=== PATIENT | male | born 1990 | race Caucasian/White ===

== ENCOUNTER 2021-08-22 22:57 | Emergency (ER) | payer MEDICAID, SELFPAY ==
[2021-08-22 23:03] VITALS: RESP 14; TEMP 36.8; BMI 24.2
--- NOTE | 2021-08-22 23:03 | XRR_ITS ---
PROCEDURE INFORMATION: Exam: XR Chest Exam date and time: 08/22/2021 11:18 PM Age: 31 years old Clinical indication: Angina; Additional info: Chest pain TECHNIQUE: Imaging protocol: Radiologic exam of the chest. Views: 1 view. COMPARISON: No relevant prior studies available. FINDINGS: Lungs: Unremarkable. No consolidation. Pleural spaces: Unremarkable. No pleural effusion. No pneumothorax. Heart/Mediastinum: Unremarkable. No cardiomegaly. Bones/joints: Unremarkable. XR/XR chest 1V portable [id number] IMPRESSION: No acute findings.
--- NOTE | 2021-08-22 23:04 | ECG_ITS ---
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 Measurements Intervals [place] Rate: 71 P: 65 [place]: 167 QRS: 75 QRSD: 93 T: 51 QT: 367 QTc: 401 Interpretive Statements SINUS RHYTHM No previous ECG available for comparison Electronically Signed On 08-23-2021 18:22:44 CDT by Rod Schumacher M.D. [id number]
--- NOTE | 2021-08-22 23:05 | ED_ITS ---
HPI - Chest Pain General: Chief Complaint: Chest Pain Stated Complaint: CP Time Seen by Provider: 08/22/21 23:03 History of Present Illness: 31-year-old male patient comes in today with chest discomfort followed by a large bowel movement and passing of gas. Patient reports he has had about 4 episodes of this. Patient at this time is in [place] for [place] abuse. Patient does take routine medications at the facility. Patient had his appendix removed in March of this year and has had a hernia repair at the age of 4. Patient denies any other chronic medical pro blems besides his mental health issues. Patient denies any drug allergies. Symptoms have been going on for 1 to 2 hours. Associated symptoms: Reports nausea; Deny dyspnea or vomiting Review of Systems General: Reports: 10 or more systems reviewed and unremarkable except in HPI and below ENMT: Denies: throat pain Card: Reports: chest pain Resp: Denies: dyspnea GI: Reports: nausea and diarrhea; Denies: vomiting Physical Exam Const: COMMON NORMALS: alert HENMT: COMMON NORMALS: normocephalic HEAD & SCALP: normocephalic Neck/C-Spine: COMMON NORMALS: full ROM Resp: COMMON NORMALS: normal respiratory effort and clear to auscultation bilaterally AUSCULTATION: clear to auscultation bilaterally Cardio: COMMON NORMALS: regular rate RATE: regular rate GI: COMMON NORMALS: Soft to palpation AUSCULTATION: Yes Hyperactive bowel sounds present PALPATION: Yes Soft to palpation Extremity: COMMON NORMALS: normal to inspection Neuro: SENSORIUM/ORIENTATION: Yes alert Skin: COMMON NORMALS: no rashes or lesions noted GENERAL SKIN EXAM: no rashes or lesions noted Course Vital Signs: Vital signs: Vital Signs Temperature 98.3 F 08/22/21 23:03 Respiratory Rate 14 08/22/21 23:03 MDM - Chest Pain Medical Decision Making 31-year-old male patient comes in today with complaints of chest discomfort. Patient describes the chest discomfort as going across his chest and then s uddenly he felt the urge to defecate. Patient then will go to the bathroom and have a large bowel movement with lots of gas. Patient reports 4 episodes of this. On exam abdomen was soft with hyperactive bowel sounds. Skin was warm and dry. Vital signs were normal. Differential diagnosis includes but not limited to atypical chest pain, gastroenteritis, irritable bowel syndrome, cholecystitis. CBC and CMP were unremarkable. Patient had no further episodes while in the ER. Patient was given 1 dose of Bentyl 20 mg for preventative of his discomfort. Encourage light diet and follow-up with primary care return to ER for new concerns or worsening symptoms. Lab Data : 08/22/21 23:05 08/22/21 23:05 Laboratory Results WBC 7.5 10^3/uL (4.0-10.0) 08/22/21 23: RBC 3.82 10^6/uL (4.1-5.3) L 08/22/21 23:05 Hgb 12.2 g/dL (11.7-16.6) 08/22/21 23:05 Hct 37.3 % (42.0-52.0) L 08/22/21 23: MCV 97.6 fl (80-94) H 08/22/21 23:05 MCH 31.9 pg (28.0-34.0) 08/22/21 23: MCHC 32.7 g/dL (30.0-36.0) 08/22/21 23:05 RDW 12.5 % (12.1-15.1) 08/22/21 23:05 Plt Count 264 10^3/cmm (130-400) 08/22/21 23:05 MPV 10.3 fL (7.4-10.4) 08/22/21 23:05 Neut % (Auto) 62.1 % 08/22/21 23:05 Lymph % (Auto) 26.0 % 08/22/21 23:05 [place] % (Auto) 7.0 % 08/22/21 23:05 Eos % (Auto) 3.3 % 08/22/21 23:05 Baso % (Auto) 0.7 % 08/22/21 23:05 Neut # (Auto) 4.64 10^3/uL (1.8-7.7) 08/22/21 23:05 Lymph # (Auto) 1.9 10^3/uL (0.8-4.8) 08/22/21 23:05 [place] # (Auto) 0.5 10^3/uL (0.2-0.9) 08/22/21 23:05 Eos # (Auto) 0.3 10^3/uL (0.0-0.8) 08/22/21 23:05 Baso # (Auto) 0.1 10^3/uL (0.0-0.1) 08/22/21 23:05 Nucleated RBC % (auto) 0 % 08/22/21 23:05 Nucleated RBCs # 0.0 /100WBC 08/22/21 23:05 Sodium 140 mmol/L (136-145) 08/22/21 23:05 Potassium 3.9 mmol/L (3.5-5.1) 08/22/21 23:05 Chloride 103 mmol/L (98-107) 08/22/21 23:05 Carbon Dioxide 25 mmol/L (22-29) 08/22/21 23:05 Anion Gap 15.9 (5-19) 08/22/21 23:05 BUN 14 mg/dL (6-20) 08/22/21 23:05 Creatinine 0.7 mg/dL (0.7-1.2) 08/22/21 23:05 GFR Calculation 132.4 mL/min (90-130) H 08/22/21 23:05 Glucose 126 mg/dL (65-115) H 08/22/21 23:05 Calculated Osmolality 292 mOsm/kg (285-295) 08/22/21 23:05 Calcium 8.8 mg/dL (8.5-10.5) 08/22/21 23:05 Total Bilirubin 0.2 mg/dL (0.15-1.2) 08/22/21 23:05 AST 22 U/L (0-40) 08/22/21 23:05 ALT 34 U/L (0-41) 08/22/21 23:05 Alkaline Phosphatase 115 IU/L (40-130) 08/22/21 23:05 Creatine Kinase 99 U/L (39-308) 08/22/21 23:05 Troponin T Baseline 6 ng/L (0-15) 08/22/21 23:05 Total Protein 6.7 g/dL (6.6-8.7) 08/22/21 23:05 Albumin 4.3 g/dL (3.5-5.2) 08/22/21 23:05 Globulin 2.4 g/dL (1.3-4.6) 08/22/21 23:05 Lipase 39 U/L (13-60) 08/22/21 23:05 Urine Color Straw (Yellow) 08/22/21 23:05 Urine Appearance Clear (CLEAR) 08/22/21 23:05 Urine pH 7 (5-7) 08/22/21 23:05 Ur Specific [place] 1.005 (1.005-1.030) 08/22/21 23:05 Urine Protein Neg (Negative) 08/22/21 23:05 Urine Glucose (UA) Norm (Normal) 08/22/21 23:05 Urine Ketones Negative (Negative) 08/22/21 23:05 Urine Blood Neg (Negative) 08/22/21 23:05 Urine Nitrate Negative (Negative) 08/22/21 23:05 Urine Bilirubin Neg (Negative) 08/22/21 23:05 Urine Urobilinogen Norm mg/dL (Negative) 08/22/21 23:05 Ur Leukocyte Esterase Negative (Negative) 08/22/21 23:05 EKG Data EKG 1: EKG interpretation date: 08/22/21 EKG interpretation time: 23:27 Prior EKG tracings: not available for review Interpretation: EKG shows a sinus rhythm with a regular rate at [address] elevation or ectopy is noted. Discharge Plan Discharge Patient Disposition: Home Clinical Impression: Enteritis Condition: Stable Prescriptions: New dicyclomine 20 mg tablet 20 mg PO TID PRN (Reason: abdominal pain) Qty: 14 0RF Discharge Orders: Discharge ED (Routine); Ordered 08/23/21 Ordered By: David Brownlee Discharge Diet: Advance as tolerated Discharge Activity: Increase activity as tolerated Patient Instructions: Gastroenteritis (ED) Activity Restrictions/Additional Instructions: Drink lots of fluids. Eat a light diet for the next 24 to 48 hours. Avoiding foods that cause lots of gas, spicy foods, or strong acidic foods. Follow-up with primary care for further instructions. 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
[2021-08-22 23:32] LABS: Add Urine Microscopic? NO; Charge for UA Resulting for Rev
[2021-08-22 23:33] LABS: Basophils # 0.1 10^3/uL (0.0-0.1); Basophils % 0.7 %; Eosinophils # 0.3 10^3/uL (0.0-0.8); Eosinophils % 3.3 %; Hematocrit 37.3 % (42.0-52.0); Hemoglobin 12.2 g/dL (11.7-16.6); Lymphocytes # 1.9 10^3/uL (0.8-4.8); Mean Corpuscular HGB Conc 32.7 g/dL (30.0-36.0); Mean Corpuscular Hemoglobin 31.9 pg (28.0-34.0); Mean Corpuscular Volume 97.6 fl (80-94); Mean Platelet Volume 10.3 fL (7.4-10.4); Monocytes # 0.5 10^3/uL (0.2-0.9); Neutrophils # 4.64 10^3/uL (1.8-7.7); Neutrophils % 62.1 %; Nucleated Red Blood Cells % 0 %; Platelet Count 264 10^3/cmm (130-400); Red Blood Count 3.82 10^6/uL (4.1-5.3); Red Cell Distribution Width 12.5 % (12.1-15.1); White Blood Count 7.5 10^3/uL (4.0-10.0)
[2021-08-22 23:36] LABS: Bilirubin Urine Neg (Negative); Blood Urine Neg (Negative); Glucose Urine UA Norm (Normal); Ketones Urine Negative (Negative); Leukocyte Esterase Urine Negative (Negative); Nitrate Urine Negative (Negative); Protein Urine Neg (Negative); Specific Gravity, Urine 1.005 (1.005-1.030); Urine Appearance Clear (CLEAR); Urine Color Straw (Yellow); Urobilinogen Urine Norm (Negative); pH Urine 7 (5-7)
[2021-08-22 23:54] LABS: Alanine Aminotransferase 34 U/L (0-41); Albumin Level 4.3 g/dL (3.5-5.2); Alkaline Phosphatase 115 IU/L (40-130); Anion Gap 15.9 (5-19); Aspartate Amino Transferase 22 U/L (0-40); Blood Urea Nitrogen 14 mg/dL (6-20); Calcium 8.8 mg/dL (8.5-10.5); Carbon Dioxide 25 mmol/L (22-29); Chloride 103 mmol/L (98-107); Creatine Phosphokinase 99 U/L (39-308); Globulin 2.4 g/dL (1.3-4.6); Glomerular Filtration Rate 132.4 mL/min (90-130); Glucose 126 mg/dL (65-115); Lipase 39 U/L (13-60); Osmolality Calculated 292 mOsm/kg (285-295); Potassium 3.9 mmol/L (3.5-5.1); Sodium 140 mmol/L (136-145); Total Bilirubin 0.2 mg/dL (0.15-1.2); Total Protein 6.7 g/dL (6.6-8.7)
[2021-08-22 23:55] LABS: Troponin(5th) Baseline 6 ng/L (0-15)
[2021-08-22] MEDS: sodium chloride 0.9% 1,000 ML 999 ML IV (23:56)
[2021-08-22] MEDS: dicyclomine 20 mg Tablet PO (23:56)
[2021-08-23 00:17] VITALS: BP 124/70; PULSE 75; RESP 14; TEMP 36.8; O2SAT 98
== END 2021-08-23 00:20 | disposition home or self-care (01) ==
PROVIDERS: Emergency Provider Nurse Practitioner Family
DX: K52.9 Noninfective gastroenteritis and colitis, unspecified (principal)
CPT/HCPCS: 71045; 80053; 81003; 82550; 83690; 84484; 85025; 93005; 99285; J7030

== ENCOUNTER 2021-09-08 14:17 | Emergency (ER) | payer MEDICAID, SELFPAY ==
--- NOTE | 2021-09-08 14:24 | XR_ITS ---
WS: [id number] Exam: XR chest 1V portable [id number] Date/Time of Exam: 09/08/2021 2:24 PM Reason For Exam: dyspnea/cough Comparison 08/22/2021. Findings: The lungs are clear and fully expanded. Costophrenic angles are sharp. No infiltrates. Bronchovascula r relief appears normal. Cardiac silhouette is unremarkable. Bony elements are intact. XR/XR chest 1V portable [id number] IMPRESSION: Unremarkable chest radiograph.
[2021-09-08 14:46] VITALS: BP 107/61; PULSE 91; RESP 17; O2SAT 93
--- NOTE | 2021-09-08 14:48 | ECG_ITS ---
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 Measurements Intervals [place] Rate: 83 P: 59 WI: 149 QRS: 66 QRSD: 98 T: 42 QT: 356 QTc: 420 Interpretive Statements SINUS RHYTHM Compared to ECG 08/22/2021 23:20:25 No significant changes Electronically Signed On 09-08-2021 16:30:51 CDT by Francesco Christopher M.D. [id number]
[2021-09-08 14:51] LABS: Basophils % 0.5 %; Eosinophils # 0.2 10^3/uL (0.0-0.8); Eosinophils % 2.6 %; Hematocrit 38.6 % (42.0-52.0); Hemoglobin 13.5 g/dL (11.7-16.6); Lymphocytes # 1.7 10^3/uL (0.8-4.8); Lymphocytes % 28.3 %; Mean Corpuscular Hemoglobin 32.4 pg (28.0-34.0); Mean Corpuscular Volume 92.6 fl (80-94); Monocytes # 0.4 10^3/uL (0.2-0.9); Neutrophils # 3.74 10^3/uL (1.8-7.7); Neutrophils % 60.9 %; Nucleated Red Blood Cells % 0 %; Platelet Count 280 10^3/cmm (130-400); Red Blood Count 4.17 10^6/uL (4.1-5.3); Red Cell Distribution Width 12.5 % (12.1-15.1); White Blood Count 6.1 10^3/uL (4.0-10.0)
[2021-09-08 15:19] LABS: Alanine Aminotransferase 34 U/L (0-41); Albumin Level 4.4 g/dL (3.5-5.2); Alkaline Phosphatase 106 IU/L (40-130); Anion Gap 14.1 (5-19); Aspartate Amino Transferase 23 U/L (0-40); Blood Urea Nitrogen 10 mg/dL (6-20); Calcium 8.9 mg/dL (8.5-10.5); Carbon Dioxide 27 mmol/L (22-29); Chloride 105 mmol/L (98-107); Globulin 2.5 g/dL (1.3-4.6); Glomerular Filtration Rate 99.1 mL/min (90-130); Glucose 85 mg/dL (65-115); Osmolality Calculated 292 mOsm/kg (285-295); Potassium 4.1 mmol/L (3.5-5.1); Sodium 142 mmol/L (136-145); Total Bilirubin 0.2 mg/dL (0.15-1.2); Total Protein 6.9 g/dL (6.6-8.7)
[2021-09-08 15:54] VITALS: BP 110/62; PULSE 88; RESP 16; O2SAT 97
[2021-09-08 16:17] LABS: Add Urine Microscopic? NO; Charge for UA Resulting for Rev
--- NOTE | 2021-09-08 16:19 | W.ED.CHESTPA ---
HPI - Chest Pain General: Chief Complaint: Chest Pain Stated Complaint: CHEST PAIN, SIDE PAIN Time Seen by Provider: 09/08/21 14:19 Source: patient Mode of arrival: ambulatory Limitations: no limitations History of Present Illness: 31-year-old female presents to the emergency room describes left flank epigastric pain that started after he was eating. He has not had any shortness of breath is any dysuria urgency or frequency no nausea vomiting or diarrhea he states he has had problems before when he eats particular types of meat that seems to exacerbate the symptoms this episode is just more intense than it has been previously MD complaint: chest pain Pertinent past history: coronary artery disease Onset (ago): minute(s) Timing of current episode: episodic Prior episodes: Yes Onset: after eating Pain location: epigastric Pain radiation: none Severity: mild Quality: aching Relieving factors: nothing Associated symptoms: Reports abdominal pain; Deny diaphoresis, dyspnea, fever(s), leg edema, nausea, palpitations, sense of impending doom, syncope or vomiting Treatment prior to arrival: none Review of Systems Const: Denies: fever(s), chills, fatigue, malaise or diaphoresis ENMT: Denies: throat pain, ear or mastoid pain, nasal discharge or nasal congestion Card: Reports: chest pain; Denies: palpitations or syncope Resp: Denies: dyspnea, productive cough or non-productive cough GI: Reports: abdominal pain; Denies: nausea or vomiting : Denies: flank pain, difficulty urinating, dysuria, urinary frequency or urinary urgency Skin/Breast: Denies: rash or pruritus REPLACED BY [facility] ED PFSH: Medical History (Updated 09/14/21 @ 07:59 by Stanford Edwards DO) Asthma Social History (Updated 09/14/21 @ 07:59 by Stanford Edwards DO) Smoking and tobacco status: current every day smoker Alcohol intake: never Physical Exam Const: COMMON NORMALS: no acute distress GENERAL APPEARANCE: cooperative and comfortable ORIENTATION/CONSCIOUSNESS: Yes awake, Yes oriented to person, Yes oriented to place and Yes oriented to time HENMT: COMMON NORMALS: normocephalic, atraumatic, hearing grossly normal bilaterally, external ears normal, EAC's normal, TM's normal bilaterally, Normal nasal mucous membranes and turbinates present, moist oral mucous membranes and oropharynx normal HEAD & SCALP: normocephalic and atraumatic NOSE: Normal nasal mucous membranes and turbinates present EXTERNAL EAR: Yes external ears normal EXTERNAL AUDITORY CANAL: EAC's normal TYMPANIC MEMBRANE: TM's normal bilaterally Eye: COMMON NORMALS: Equal, round and reactive pupils present, EOMs intact bilaterally, conjunctivae normal and no scleral icterus CONJUNCTIVA: Yes conjunctivae normal PUPIL: Yes Equal, round and reactive pupils present Neck/C-Spine: COMMON NORMALS: full ROM, no lymphadenopathy, supple and no JVD Lymph: LYMPHATIC: no lymphadenopathy noted and no lymphedema noted Resp: COMMON NORMALS: normal respiratory effort, No retractions, No use of accessory muscles and clear to auscultation bilaterally AUSCULTATION: clear to auscultation bilaterally Cardio: COMMON NORMALS: no JVD, regular rate, regular rhythm and No murmurs present (Cardio) RATE: regular rate RHYTHM: regular rhythm GI: COMMON NORMALS: Soft to palpation and No hepatosplenomegaly present AUSCULTATION: Yes normoactive bowel sounds PALPATION: Yes Soft to palpation, No Tenderness to palpation present (GI), No Guarding due to palpation present (GI) and Yes No hepatosplenomegaly present Extremity: COMMON NORMALS: normal to inspection, capillary refill normal, no clubbing, cyanosis or edema, no calf tenderness and no pedal edema Neuro: SENSORIUM/ORIENTATION: Yes oriented to person, Yes oriented to place and Yes oriented to time Skin: COMMON NORMALS: no rashes or lesions noted GENERAL SKIN EXAM: no rashes or lesions noted Course Vital Signs: Vital signs: Vital Signs Pulse Rate 88 09/08/21 15:54 Respiratory Rate 16 09/08/21 15:54 Blood Pressure 110/62 09/08/21 15:54 Pulse Oximetry 97 09/08/21 15:54 Oxygen Delivery Me thod 09/08/21 15:54 MDM - Chest Pain Medical Decision Making Atypical chest pain not cardiac in nature his EKG is unremarkable. Discharge home on Protonix and a reflux diet follow-up as needed Medical Records I reviewed the patient's medical records. Lab Data I reviewed the patient's lab results. : 09/08/21 13:56 09/08/21 13:56 Radiology Impressions Chest X-Ray 09/08/21 14:24 IMPRESSION: Unremarkable chest radiograph. Laboratory Results WBC 6.1 10^3/uL (4.0-10.0) 09/08/21 13:56 RBC 4.17 10^6/uL (4.1-5.3) 09/08/21 13:56 Hgb 13.5 g/dL (11.7-16.6) 09/08/21 13:56 Hct 38.6 % (42.0-52.0) L 09/08/21 13:56 MCV 92.6 fl (80-94) 09/08/21 13:56 MCH 32.4 pg (28.0-34.0) 09/08/21 13:56 MCHC 35.0 g/dL (30.0-36.0) 09/08/21 13:56 RDW 12.5 % (12.1-15.1) 09/08/21 13:56 Plt Count 280 10^3/cmm (130-400) 09/08/21 13:56 MPV 10.0 fL (7.4-10.4) 09/08/21 13:56 Neut % (Auto) 60.9 % 09/08/21 13:56 Lymph % (Auto) 28.3 % 09/08/21 13:56 [place] % (Auto) 7.0 % 09/08/21 13:56 Eos % (Auto) 2.6 % 09/08/21 13:56 Baso % (Auto) 0.5 % 09/08/21 13:56 Neut # (Auto) 3.74 10^3/uL (1.8-7.7) 09/08/21 13:56 Lymph # (Auto) 1.7 10^3/uL (0.8-4.8) 09/08/21 13:56 [place] # (Auto) 0.4 10^3/uL (0.2-0.9) 09/08/21 13:56 Eos # (Auto) 0.2 10^3/uL (0.0-0.8) 09/08/21 13:56 Baso # (Auto) 0.0 10^3/uL (0.0-0.1) 09/08/21 13:56 Nucleated RBC % (auto) 0 % 09/08/21 13:56 Nucleated RBCs # 0.0 /100WBC 09/08/21 13:56 Sodium 142 mmol/L (136-145) 09/08/21 13:56 Potassium 4.1 mmol/L (3.5-5.1) 09/08/21 13:56 Chloride 105 mmol/L (98-107) 09/08/21 13:56 Carbon Dioxide 27 mmol/L (22-29) 09/08/21 13:56 Anion Gap 14.1 (5-19) 09/08/21 13:56 BUN 10 mg/dL (6-20) 09/08/21 13:56 Creatinine 0.9 mg/dL (0.7-1.2) 09/08/21 13:56 GFR Calculation 99.1 mL/min (90-130) 09/08/21 13:56 Glucose 85 mg/dL (65-115) 09/08/21 13:56 Calculated Osmolality 292 mOsm/kg (285-295) 09/08/21 13:56 Calcium 8.9 mg/dL (8.5-10.5) 09/08/21 13:56 Total Bilirubin 0.2 mg/dL (0.15-1.2) 09/08/21 13:56 AST 23 U/L (0-40) 09/08/21 13:56 ALT 34 U/L (0-41) 09/08/21 13:56 Alkaline Phosphatase 106 IU/L (40-130) 09/08/21 13:56 Troponin T Gen 5 ng/L 11 ng/L (0-15) 09/08/21 13:56 Total Protein 6.9 g/dL (6.6-8.7) 09/08/21 13:56 Albumin 4.4 g/dL (3.5-5.2) 09/08/21 13:56 Globulin 2.5 g/dL (1.3-4.6) 09/08/21 13:56 Urine Color Yellow (Yellow) 09/08/21 15:48 Urine Appearance Clear (CLEAR) 09/08/21 15:48 Urine pH 6.5 (5-7) 09/08/21 15:48 Ur Specific [place] 1.015 (1.005-1.030) 09/08/21 15:48 Urine Protein Neg (Negative) 09/08/21 15:48 Urine Glucose (UA) Norm (Normal) 09/08/21 15:48 Urine Ketones Negative (Negative) 09/08/21 15:48 Urine Blood Neg (Negative) 09/08/21 15:48 Urine Nitrate Negative (Negative) 09/08/21 15:48 Urine Bilirubin Neg (Negative) 09/08/21 15:48 Urine Urobilinogen Norm mg/dL (Negative) 09/08/21 15:48 Ur Leukocyte Esterase Negative (Negative) 09/08/21 15:48 Discharge Plan Discharge Clinical Impression: Atypical chest pain, Esophagitis Prescriptions: New Protonix 40 mg tablet,delayed release (DR/EC) 40 mg PO BID Qty: 20 0RF No Action Spiriva with HandiHaler 18 mcg capsule, w/inhalation device 1 cap inhalation DAILY Rx Instructions: puncture 1 cap using device; one dose = 2 inhalations venlafaxine 75 mg tablet 75 mg PO DAILY venlafaxine 150 mg tablet extended release 24 hr 150 mg PO DAILY celecoxib [Celebrex] 100 mg capsule 100 mg PO BID budesonide-formoterol [Symbicort] 160-4.5 mcg/actuation HFA aerosol inhaler 1 puff inhalation BID gabapentin 800 mg tablet 800 mg PO TID alprazolam 1 mg tablet 1 mg PO TID PRN (Reason: Anxiety) tizanidine 4 mg capsule 4 mg PO TID PRN (Reason: Muscle Pain) melatonin 5 mg capsule 5 - 10 mg PO BEDTIME paliperidone [Invega] 6 mg tablet extended release 24hr 6 mg PO BEDTIME levocetirizine 5 mg tablet 5 mg PO DAILY PRN (Reason: Allergy Symptoms) dicyclomine 20 mg tablet 20 mg PO TID PRN (Reason: stomach cramps) albuterol sulfate [ProAir HFA] 90 mcg/actuation HFA aerosol inhaler 2 puff inhalation Q6H PRN (Reason: Shortness Of Breath) fluticasone propionate [Allergy Relief (fluticasone)] 50 mcg/actuation spray,suspension 1 spray intranasal DAILY PRN (Reason: Nasal Congestion) Rx Instructions: administer into each nostril acetaminophen 500 mg Tablet 500 mg PO Q8H PRN (Reason: Pain) zolpidem 10 mg Tablet 10 mg PO BEDTIME PRN (Reason: Sleep) nicotine (polacrilex) 2 mg Lozenge 12 mg BUCCAL DAILY PRN (Reason: Nicotine Cravings) Vitamin D3 125 mcg (5,000 unit) Tablet 125 mcg PO DAILY 400 mcg Tablet,Chewable 1 tab PO DAILY Discharge Orders: Discharge ED (Routine); Ordered 09/08/21 Ordered By: Stanford Edwards Discharge Diet: As Directed Discharge Activity: Resume usual activity Patient Instructions: Esophagitis (ED), Opioid Safety Coding Level of Care Code 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
[2021-09-08 16:34] LABS: Bilirubin Urine Neg (Negative); Blood Urine Neg (Negative); Glucose Urine UA Norm (Normal); Ketones Urine Negative (Negative); Leukocyte Esterase Urine Negative (Negative); Nitrate Urine Negative (Negative); Protein Urine Neg (Negative); Specific Gravity, Urine 1.015 (1.005-1.030); Urine Appearance Clear (CLEAR); Urine Color Yellow (Yellow); Urobilinogen Urine Norm (Negative); pH Urine 6.5 (5-7)
[2021-09-08 18:17] LABS: Troponin T (5th) Once 11 ng/L (0-15)
== END 2021-09-08 17:05 | disposition home or self-care (01) ==
PROVIDERS: Emergency Provider Family Medicine
DX: R07.89 Other chest pain (principal); K20.90 Esophagitis, unspecified without bleeding; F17.210 Nicotine dependence, cigarettes, uncomplicated
CPT/HCPCS: 71045; 80053; 81003; 84484; 85025; 93005; 99285

== ENCOUNTER 2025-02-05 13:52 | Inpatient (IN) | payer MEDICAID, SELFPAY ==
--- OUTSIDE RECORDS SUMMARY | 2024-10-02 14:45 | XMS_ITS ---
Author Organization [facility] Address [address], [place] [address] Phone [phone] Care Team Providers Care Flight Attendant/Inflight Manager Name Role Phone Yaron SANTIAGO, DR. Alexis [facility] [phone] Allergies Allergen (clinical drug ingredient) Drug/Non Drug Allergy documented on EMR Reaction Allergy Type Onset Date Status cephalexin Cephalexin Unknown Drug Allergy Activ e Reason For Referral Referral Date 10/02/2024 Referral Status Pending Reason Home sleep study Diagnosis 1 Hypersomnia (G47.10) [facility]erral Organization [facility] Referring Provider First Name Lucy Referring Provider Last Name Marley Referred Provider [facility] [employer], [employer] Referred Provider Specialty Other suppli er Clinical Notes faxed, Rohini Baez ma 01/17/2025 09:49:21 AM INSPECTOR FABRIC > Referral Priority Routine Addressed Referral details can be found under 'Consultation Request Notes' section REASON FOR VISIT Pt states he was seeing Marleni Salas and decided to leave, states she refused to refill his scripts and didn't get things done like referrals and tests. Med refills, Pt does admit to smoking meth, last used a week ago Medications Medication SIG (Take, Route, Frequency, Duration) Notes Start Date End Date Diagnosis (ICD Code) Status Melatonin 5 MG Tablet take 2 tablets Orally at bedtime; Duration: 90 days Active OLANZapine 10 MG Tablet 1 tablet Orally in the evening or at bedtime; Duration: 30 days Not-Taking Suboxone 8-2 MG Film Dissolve 1/2 to 1 film under the tongue Sublingual 2 - 3 times daily; Duration: 30 days As needed Active Venlafaxine HCl 100 MG Tablet 1 tablet with food Orally Once a day; Duration: 30 days Active hydrOXYzine HCl 50 MG Tablet 1 tablet as needed Orally twice a day; Duration: 30 days for anxiety Active Atomoxetine HCl 60 MG Capsule 1 capsule in the morning Orally daily; Duration: 30 days Active Zolpidem Tartrate 5 MG Tablet 1 tablet at bedtime as needed Orally daily; Duration: 30 days for insomnia Active Ventolin HFA 108 (90 Base) MCG/ACT Aerosol Solution Inhale 2 puffs by mouth every 4-6 hours; Duration: 17 days As needed Active M-Jaime Plus 27-1 MG Tablet 1 tablet Orally Once a day Active busPIRone HCl 15 MG Tablet 1 tablet Orally 3 times a day; Duration: 30 days as needed for anxiety Active Celecoxib 100 MG Capsule 1 capsule Orally twice a day As needed Primary generalized (osteo)arthritis (ICD_10 - M15.0) Active cloNIDine HCl 0.1 MG Tablet 1 tablet Orally Once a day As needed Active Vitamin D (Ergocalciferol) 16058 UNIT Capsule 1 capsule Orally once weekly Vitamin D deficiency (ICD_10 - E55.9) Active Linzess 145 MCG Capsule 1 capsule at least 30 minutes before the first meal of the day on an empty stomach Orally daily; Duration: 30 days Constipation by delayed colonic transit (ICD_10 - K59.01) Active Spiriva HandiHaler 18 MCG Capsule 1 capsule by inhaling the contents of the capsule using the HandiHaler device Inhalation Once a day; Duration: 30 days as directed COPD (chronic obstructive pulmonary disease) (ICD_10 - J44.9) Active Gabapentin 800 MG Tablet 1 tablet Orally 3 times a day as needed for pain Lumbar disc disease (ICD_10 - M51.9) Active Levocetirizine Dihydrochloride 5 MG Tablet Take one tablet Orally Once a day as needed for allergy symptoms Seasonal allergic rhinitis (ICD_10 - J30.2) Active Famotidine 40 MG Tablet 1 tablet Orally at bedtime as directed GERD (gastroesophagea l reflux disease) (ICD_10 - K21.9) Active Promethazine HCl 25 MG Tablet Oral; Duration: 4 Days Not-Taking Cyclobenzaprine HCl 5 MG Tablet Oral; Duration: 30 Days Not-Taking Fluticasone Propionate 50 MCG/ACT Suspension 1 spray in each nostril Nasally Once a day; Duration: 60 days As needed Active Mupirocin 2 % Ointment Apply to affected areas External 3 times a day; Duration: 30 days as directed Active Baclofen 10 MG Tablet 1 tablet as needed Orally 3 times a day; Duration: 15 days Not-Taking Omeprazole 40 MG Capsule Delayed Release 1 capsule Orally Once a day GERD (gastroesophagea l reflux disease) (ICD_10 - K21.9) Active Kristalose 10 GM Packet Dissolve 1 packet in water and drink Orally Once a day; Duration: 30 days Active Ondansetron HCl 8 MG Tablet Take one tablet Orally 3 times a day; Duration: 15 days as needed for nausea and vomiting Active Social History Sex Observation Social History Observation Description Sex Observation Male Social History Drug/Alcohol: Social Info Question Answer Notes Drugs Have you use non pre scription recreational drug(s) in past 12 months? Yes Marijuana? No Methamphetamine? Yes Alcohol Screen How often did you palmer ve a drink containing alcohol in the past year? none/never - 0 Tobacco Use: Social Info Question Answer Notes Smoking History Are you a tobacco smoker / vaper? curr ent smoker How many cigarettes/cigar a day do you smoke? 21 - 30 How long did you smoke? 20 to 30 years Are you an other tobacco user? Yes V ape and pouches Problems Problem Type SNOMED Code ICD Code Dates Problem Status W/U Status Risk Notes Problem Hypersomnia (30106369) Hypersomnia (G47.10) Added On:10/02 Active confirmed Problem Vitamin D deficiency (41827879) Vitamin D deficiency (E55.9) Added On:10/02 Active confirmed Problem Gastroesophageal reflux disease (975097541) GERD (gastroesophage al reflux disease) (K21.9) Added On:10/02 Active confirmed Problem Seasonal allergic rhinitis (579628314) Seasonal allergic rhinitis (J30.2) Added On:10/02 Active confirmed Problem Disorder of lumbar disc (830711505) Lumbar disc disease (M51.9) Added On:10/02 Active confirmed Problem Primary generalised osteoarthritis (738920763) Primary generalized (osteo)arthriti s (M15.0) Added On:10/02 Active confirmed Problem COPD - Chronic obstructive pulmonary disease (83398046) COPD (chronic obstructive pulmonary disease) (J44.9) Added On:10/02 Active confirmed Problem Constipation by delayed colonic transit (94979275) Constipation by delayed colonic transit (K59.01) Added On:10/02 Active confirmed Vital Signs Vital Sign Value Appt Date Blood pressure systolic 90 mm Hg 10/03/19 Blood pressure diastolic 60 mm Hg 025 Heart Rate 85 /min 10/02/2024 Respiratory Rate 18 /min 10/02/2024 Height 68 in 10/02/2024 Weight 152 lbs 10/02/2024 BMI 23.11 kg/m2 10/02/2024 Oximetry 94 % 10/02/2024 Height-cm 172.72 cm 10/02/2024 Weight-kg 68.95 kg 10/02/2024 Encounters Date Time Type Facility Location Provider Diagnosis 02:45 PM Office Visit, New Pt., Level 3 (71746) [facility] [address] [place] [address] Reuben Marrufo Hypersomnia G47.10 ; Acute non-recurrent pansinusitis J01.40 ; Recurrent acute serous otitis media of both ears H65.06 ; Vitamin D deficiency E55.9 ; GERD (gastroesophagea l reflux disease) K21.9 ; Seasonal allergic rhinitis J30.2 ; Lumbar disc disease M51.9 ; Primary generalized (osteo)arthritis M15.0 ; COPD (chronic obstructive pulmonary disease) J44.9 and Constipation by delayed colonic transit K59.01 Assessments Encounter Date Diagnosis (ICD Code) Assessment Notes Treat ment Notes Section Notes 10/02/2024 Hypersomnia (ICD-10 - G47.10) 10/02/2024 Acute non-recurrent pansinusitis (ICD-10 - J01.40) 10/02/2024 Recurrent acute sero us otitis media of both ears (ICD-10 - H65.06) 10/02/2024 Vitamin D deficiency (ICD-10 - E55.9) 10/02/2024 GERD (gastroesophage al reflux disease) (ICD-10 - K21.9) 10/02/2024 Seasonal allergic rhinitis (ICD-10 - J30.2) 10/02/2024 Lumbar disc disease (ICD-10 - M51.9) 10/02/2024 Primary generalized (osteo)arthritis (ICD-10 - M15.0) 10/02/2024 COPD (chronic obstructive pulmonary disease) (ICD-10 - J44.9) 10/02/2024 Constipation by herbie preston colonic transit (ICD-10 - K59.01) Plan Of Treatment Medication Medication Name Sig Start Date Stop Date Notes Celecoxib 100 MG Capsule 1 capsule Orall y twice a day Vitamin D (Ergocalciferol) 5 0000 UNIT Capsule 1 capsule Orally once weekly Linzess 145 MCG Capsule [address] 30 minutes before the first meal of the day on an empty stomach Orally daily; Duration: 30 days Spiriva HandiHaler 18 MCG Capsule 1 capsule by inhaling the contents of the capsule using the HandiHaler device Inhalation Once a day; Duration: 30 days Gabapentin 800 MG Tablet 1 tablet Orally 3 times a day Levocetirizine Dihydrochlori de 5 MG Tablet Take one tablet Orally Once a day Famotidine 40 MG Tablet 1 tablet Orally at bedtime Omeprazole 40 MG Capsule Del ayed Release 1 capsule Orally Once a day Referrals Referral Date Details 10/02/2024 10/02/2024, Recurren t otitis media, [facility] 10/02/2024 10/02/2024, Home sle ep study, [employer]ICAL SUP[employer]IER AND EQUIPMENT [facility] Next Appt Details Follow Up: 4 Weeks, Reason: Medical (General) History Medical History History ICD Code COPD Scoliosis Sleep Apnea Borderline personality disorder PTSD Depression- Manic and Major Anxiety- Generalized ADHD Surgical History Surgery Date(Month/Year) Hernia appendectomy Colonoscopy exploratory surgery History and Physical Notes * HPI (History of Present Illness) Category c/o Denies Symptom Duration Details Notes Catego ry Notes History of Present Illness 34 year old male presents to the clinic to establish care.He was seeing Marleni Salas.He states he has been seeing psychiatry. He does not feel his anxiety is controlled enough. He uses meth at times. We discussed that we could not give controlled meds.He states he has had recurrent ear infections and wants to be referred to an ENT.He states he feels tired often during the day. He has had witnessed apnea by his s/o. [place] Consultation Request Notes Open Referral(s) Referral Date Referring Provider Referred Provider Not es 10/02/2024 Lucy Roach [facility], [employer]IER [employer]QUIPMENT Home sleep study Addressed Referral(s) Reason Recurrent otitis med ia Diagnosis 1 Recurrent acute sero us otitis media of both ears (H65.06) [facility]erral Organization [facility] Referral Status Addressed Referral Date 10/02/2024 Referring Provider First Name Lucy Referring Provider Last Name Marley Referred Provider [facility] Referred Provider Specialty Otolaryngolo gy General Notes faxed referral, Maty Ho 10/03/2024 11:08:55 AM CDT >, Called office, they stated they have reached out with no answer, they will try again in a couple days otherwise he just needs to call them and get scheduled., Maty Parks 10/07/2024 02:30:41 PM CDT >, Called pt. no answer., Maty Parks 10/07/2024 02:30:56 PM CDT >, CAlled pt. no answer, Maty Parks 10/15/2024 10:06:29 AM CDT >, Called pt. no answer, Maty Parks 10/22/2024 03:57:33 PM CDT >, Called pt, no answer, Maty Parks 10/25/2024 10:05:08 AM CDT >, called pt. no answer, Maty Parks 11/14/2024 11:41:25 AM CDT > Clinical Notes Called pt, no answer , Nestor KAYE Emma 11/18/2024 11:20:14 AM CDT >, Called pt, straight to Nestor williamson Emma 11/22/2024 01:36:54 PM CDT >, Called pt, straight to Nestor WILLIAMSON Emma 12/02/2024 10:05:04 AM CDT > Referral Priority Routine Progress Notes * Mini COHENOB:1990 (34 yo M)Acc No.[id number]:10/02/2024 Progress Notes Patient: Carlin Cohendariela Provider: Reuben Marrufo MD :1990 Age:34 Y Sex:Male Date:10/02/2024 Phone: Address:[address] [place], [place] [address] Subjective: * Chief Complaints: * Pt states he was seeing Marleni Salas and decided to leave, states she refused to refill his scripts and didn't get things done like referrals and tests. Med refillsPt does admit to smoking meth, last used a week ago * HPI: History of Present Illness: 34 year old male presents to the clinic to establish care.He was seeing Marleni Salas. He states he has been seeing psychiatry. He does not feel his anxiety is controlled enough. He uses meth at times. We discussed that we could not give controlled meds. He states he has had recurrent ear infections and wants to be referred to an ENT. He states he feels tired often during the day. He has had witnessed apnea by his s/o. [place]. * Medical History: COPD Scoliosis Sleep Apnea Borderline personality disorder PTSD Depression- Manic and Major Anxiety- Generalized ADHD Medical History Verified * Surgical History: Hernia appendectomy Colonoscopy exploratory surgery Surgical History verified. * Hospitalization/Major Diagno stic Procedure: Denies Past Hospitalization. * Social History: Tobacco Use: Smoking History Are you a tobacco smoker / vaper? current smoker How many cigarettes/cigar a day do you smoke? 21 - 30 How long did you smoke? 20 to 30 years Are you an other tobacco user? Yes Vape and pouches Drug/Alcohol: Alcohol Screen How often did you have a drink containing alcohol in the past year? none/never - 0 Drugs Have you use non prescription recreational drug(s) in past 12 months? Yes Marijuana? No Methamphetamine? Yes Social History Verified. * Medications: TakingVitamin D (Ergocalciferol) 67038 UNIT Capsule 1 capsule Orally once weekly Vitamin D (Ergocalciferol) 63491 UNIT Capsule 1 capsule Orally once weekly 430125Aigcrqgvck 40 MG Capsule Delayed Release 1 capsule Orally Once a day Omeprazole 40 MG Capsule Delayed Release 1 capsule Orally Once a day 515246Mbjooxnnnanqwj Dihydrochloride 5 MG Tablet Take one tablet Orally Once a day as needed for allergy symptomsLevocetirizine Dihydrochloride 5 MG Tablet Take one tablet Orally Once a day as needed for allergy vrjcoxob995755Gnpppwsqio 40 MG Tablet 1 tablet Orally at bedtime as directedFamotidine 40 MG Tablet 1 tablet Orally at bedtime as mxyiorjd889610Quvzciwdox 800 MG Tablet 1 tablet Orally 3 times a day as needed for painGabapentin 800 MG Tablet 1 tablet Orally 3 times a day as needed for qisw554168Qfrsenwcd 100 MG Capsule 1 capsule Orally twice a day As neededCelecoxib 100 MG Capsule 1 capsule Orally twice a day As rnurbq577933qwlWYKelk HCl 0.1 MG Tablet 1 tablet Orally Once a day As neededcloNIDine HCl 0.1 MG Tablet 1 tablet Orally Once a day As kymrgw632539L-Palzr Plus 27-1 MG Tablet 1 tablet Orally Once a day M- Plus 27-1 MG Tablet 1 tablet Orally Once a day 799054Dracddcd Tartrate 5 MG Tablet 1 tablet at bedtime as needed Orally daily for insomniaZolpidem Tartrate 5 MG Tablet 1 tablet at bedtime as needed Orally daily for lcycnkci871131Ebtjkrol HFA 108 (90 Base) MCG/ACT Aerosol Solution Inhale 2 puffs by mouth every 4-6 hours As neededVentolin HFA 108 (90 Base) MCG/ACT Aerosol Solution Inhale 2 puffs by mouth every 4-6 hours As etvfab459894Dlyuuaiupjn HCl 60 MG Capsule 1 capsule in the morning Orally daily Atomoxetine HCl 60 MG Capsule 1 capsule in the morning Orally daily 650446ofuENObmp HCl 15 MG Tablet 1 tablet Orally 3 times a day as needed for anxietybusPIRone HCl 15 MG Tablet 1 tablet Orally 3 times a day as needed for nwurscg868262wulyCSWyvoj HCl 50 MG Tablet 1 tablet as needed Orally twice a day for anxietyhydrOXYzine HCl 50 MG Tablet 1 tablet as needed Orally twice a day for xdjglnf101632Vdqycgnk 8-2 MG Film Dissolve 1/2 to 1 film under the tongue Sublingual 2 - 3 times daily As neededSuboxone 8-2 MG Film Dissolve 1/2 to 1 film under the tongue Sublingual 2 - 3 times daily As sdusqj906042Ekhkxnfkkjo HCl 100 MG Tablet 1 tablet with food Orally Once a day Venlafaxine HCl 100 MG Tablet 1 tablet with food Orally Once a day 985689Lpcuiujnz 5 MG Tablet take 2 tablets Orally at bedtime Melatonin 5 MG Tablet take 2 tablets Orally at bedtime 527313Ucodthfmexg HCl 8 MG Tablet Take one tablet Orally 3 times a day as needed for nausea and vomitingOndansetron HCl 8 MG Tablet Take one tablet Orally 3 times a day as needed for nausea and ugwmgoys551743Dhczwvvjdgi Propionate 50 MCG/ACT Suspension 1 spray in each nostril Nasally Once a day As neededFluticasone Propionate 50 MCG/ACT Suspension 1 spray in each nostril Nasally Once a day As xaatov807029Nrderawgl 2 % Ointment Apply to affected areas External 3 times a day as directedMupirocin 2 % Ointment Apply to affected areas External 3 times a day as wjnatigk296790Emlzolu HandiHaler 18 MCG Capsule 1 capsule by inhaling the contents of the capsule using the HandiHaler device Inhalation Once a day as directedSpiriva HandiHaler 18 MCG Capsule 1 capsule by inhaling the contents of the capsule using the HandiHaler device Inhalation Once a day as ngjotdvi422212Vdsemhmlou 10 GM Packet Dissolve 1 packet in water and drink Orally Once a day Kristalose 10 GM Packet Dissolve 1 packet in water and drink Orally Once a day 625638Wybkfrs 145 MCG Capsule 1 capsule at least 30 minutes before the first meal of the day on an empty stomach Orally daily Linzess 145 MCG Capsule 1 capsule at least 30 minutes before the first meal of the day on an empty stomach Orally daily 910888Yrrnjr Vitamin D (Ergocalciferol) 62602 UNIT Capsule 1 capsule Orally once weekly Taking Omeprazole 40 MG Capsule Delayed Release 1 capsule Orally Once a day Taking Levocetirizine Dihydrochloride 5 MG Tablet Take one tablet Orally Once a day as needed for allergy symptomsTaking Famotidine 40 MG Tablet 1 tablet Orally at bedtime as directedTaking Gabapentin 800 MG Tablet 1 tablet Orally 3 times a day as needed for painTaking Celecoxib 100 MG Capsule 1 capsule Orally twice a day As neededTaking cloNIDine HCl 0.1 MG Tablet 1 tablet Orally Once a day As neededTaking M-Jaime Plus 27-1 MG Tablet 1 tablet Orally Once a day Taking Zolpidem Tartrate 5 MG Tablet 1 tablet at bedtime as needed Orally daily for insomniaTaking Ventolin HFA 108 (90 Base) MCG/ACT Aerosol Solution Inhale 2 puffs by mouth every 4-6 hours As neededTaking Atomoxetine HCl 60 MG Capsule 1 capsule in the morning Orally daily Taking busPIRone HCl 15 MG Tablet 1 tablet Orally 3 times a day as needed for anxietyTaking hydrOXYzine HCl 50 MG Tablet 1 tablet as needed Orally twice a day for anxietyTaking Suboxone 8-2 MG Film Dissolve 1/2 to 1 film under the tongue Sublingual 2 - 3 times daily As neededTaking Venlafaxine HCl 100 MG Tablet 1 tablet with food Orally Once a day Taking Melatonin 5 MG Tablet take 2 tablets Orally at bedtime Taking Ondansetron HCl 8 MG Tablet Take one tablet Orally 3 times a day as needed for nausea and vomitingTaking Fluticasone Propionate 50 MCG/ACT Suspension 1 spray in each nostril Nasally Once a day As neededTaking Mupirocin 2 % Ointment Apply to affected areas External 3 times a day as directedTaking Spiriva HandiHaler 18 MCG Capsule 1 capsule by inhaling the contents of the capsule using the HandiHaler device Inhalation Once a day as directedTaking Kristalose 10 GM Packet Dissolve 1 packet in water and drink Orally Once a day Taking Linzess 145 MCG Capsule 1 capsule at least 30 minutes before the first meal of the day on an empty stomach Orally daily Not-TakingOLANZapine 10 MG Tablet 1 tablet Orally in the evening or at bedtime OLANZapine 10 MG Tablet 1 tablet Orally in the evening or at bedtime 225844Mrxktexb 10 MG Tablet 1 tablet as needed Orally 3 times a day Baclofen 10 MG Tablet 1 tablet as needed Orally 3 times a day 723888Seruzabnnawy HCl 25 MG Tablet Oral Promethazine HCl 25 MG Tablet Oral 662896Llhdohhfhfnflhg HCl 5 MG Tablet Oral Cyclobenzaprine HCl 5 MG Tablet Oral 111606Wprtbfwepp List reviewed and reconciled with the patientNot-Taking OLANZapine 10 MG Tablet 1 tablet Orally in the evening or at bedtime Not-Taking Baclofen 10 MG Tablet 1 tablet as needed Orally 3 times a day Not-Taking Promethazine HCl 25 MG Tablet Oral Not-Taking Cyclobenzaprine HCl 5 MG Tablet Oral Medication List reviewed and reconciled with the patient * Allergies: CephalexinyesAllergies Verified. Objective: * Vitals: Ht:68in, Wt:152lbs, BMI:23.11Index, BP:90/60mm Hg, HR:85/min, RR:18/min, Oxygen sat %:94%, Wt-k.95 kg, Ht-cm: 172.72 cm, Body Surface Area: 1.82. Assessment: * Assessment: 1. Hypersomnia - G47.10 (Primary) 2. Acute non-recurrent pansinusitis - J01.40 3. Recurrent acute serous otitis media of both ears - H65.06 4. Vitamin D deficiency - E55.9 5. GERD (gastroesophageal reflux disease) - K21.9 6. Seasonal allergic rhinitis - J30.2 7. Lumbar disc disease - M51.9 8. Primary generalized (osteo)arthritis - M15.0 9. COPD (chronic obstructive pulmonary disease) - J44.9 10. Constipation by delayed colonic transit - K59.01 Plan: * Treatment: 2. Recurrent acute serous otitis media of both ears Referral To: [facility] Otolaryngology Reason:Recurrent otitis media 3. Vitamin D deficiency Refill Vitamin D (Ergocalciferol) Capsule, 73020 UNIT, 1 capsule, Orally, once weekly. 4. GERD (gastroesophageal reflux disease) Refill Omeprazole Capsule Delayed Release, 40 MG, 1 capsule, Orally, Once a day; Refill Famotidine Tablet, 40 MG, 1 tablet, Orally, at bedtime as directed. 5. Seasonal allergic rhinitis Refill Levocetirizine Dihydrochloride Tablet, 5 MG, Take one tablet, Orally, Once a day as needed for allergy symptoms. 6. Lumbar disc disease Refill Gabapentin Tablet, 800 MG, 1 tablet, Orally, 3 times a day as needed for pain. 7. Primary generalized (osteo)arthritis Refill Celecoxib Capsule, 100 MG, 1 capsule, Orally, twice a day As needed. 8. COPD (chronic obstructive pulmonary disease) Refill Spiriva HandiHaler Capsule, 18 MCG, 1 capsule by inhaling the contents of the capsule using the HandiHaler device, Inhalation, Once a day as directed, 30 days, 30 Capsule, Refills 0. 9. Constipation by delayed colonic transit Refill Linzess Capsule, 145 MCG, 1 capsule at least 30 minutes before the first meal of the day on an empty stomach, Orally, daily, 30 days, Refills 0. * Follow Up: 4 Weeks Billing Information: * Visit Code: 45156 Office Visit, New Pt., Level 3. * Procedure Codes: * Electronic signature of DR. Reuben Marrufo MD on 02/05/2025 at 01:56 PM INSPECTOR FABRIC Sign off status: Pending * Provider: Reuben Marrufo MD Date: 10/02/2024 Generated for Shelby goodwin/Trudy/Earlene on: 02/05/2025 01:56 PM INSPECTOR [employer]RIC
--- OUTSIDE RECORDS SUMMARY | 2024-10-30 14:45 | XMS_ITS ---
Author Organization [facility] Address [address] [place], [place] [address] Phone [phone] Care Team Providers Care Sap Functional Analyst Name Role Phone Yaron SANTIAGO, DR. Alexis Unavailable REASON FOR VISIT 1 month f/u Social History Sex Observation Social History Observation Description Sex Observation Male Encounters Date Time Type Facility Location Provider Diagnosis 10/30/2024 02:45 PM Office Visit [facility] [address] [place] [address] Reuben Marrufo Plan Of Treatment No Information Medical (General) History Medical History History ICD Code COPD Scoliosis Sleep Apnea Borderline personality disorder PTSD Depression- Manic and Major Anxiety- Generalized ADHD Surgical History Surgery Date(Month/Year) Hernia appendectomy Colonoscopy exploratory surgery Progress Notes * Mini COHENOB:1990 (34 yo M)Acc No.[id number]:10/30/2024 Progress Notes Patient: Olegario Cohen Provider: Reuben Marrufo MD :1990 Age:34 Y Sex:Male Date:10/30/2024 Phone: Address:[address] [place], [place] [id number] Subjective: * Chief Complaints: * 1 month f/u Billing Information: * Procedure Codes: * Electronic signature of DR. Reuben Marrufo MD on 02/05/2025 at 01:54 PM POLYMER MATERIALS CONSULTANT Sign off status: Pending * Provider: Reuben Marrufo MD Date: 10/30/2024 Generated for Printi ng/Faxing/eTransmitting on: 02/05/2025 01:54 PM POLYMER MATERIALS CONSULTANT
[2025-02-05 13:53] VITALS: BP 96/59; PULSE 62; RESP 15; TEMP 37.2; O2SAT 95; BMI 24.2
--- NOTE | 2025-02-05 13:54 | W.ED.PSYCHS ---
HPI - Psych General: Chief Complaint: Psychiatric Symptoms Stated Complaint: SI History of Present Illness: 34-year-old man with a history of methamphetamine abuse, asthma, anxiety and depression who presents to the emergency room with suicidal thoughts. He is currently and [facility]. He says he has been feeling weak and tired. He says he been having suicidal thoughts but does not have a specific plan. Related Data Home Medications ?Medication ?Instructions ?Recorded ?Confirmed albuterol sulfate 90 mcg/actuation 2 puff inhalation Q6H PRN 08/27/21 12/09/22 aerosol inhaler (ProAir HFA) Shortness Of Breath budesonide-formoterol HFA 160 1 puff inhalation BID 08/27/21 12/09/22 mcg-4.5 mcg/actuation aerosol inhaler (Symbicort) celecoxib 100 mg capsule (Celebrex) 100 mg PO BID 08/27/21 12/09/22 fluticasone propionate 50 1 spray intranasal DAILY PRN Nasal 08/27/21 12/09/22 mcg/actuation nasal Congestion spray,suspension (Allergy Relief (fluticasone)) gabapentin 800 mg tablet 800 mg PO TID 08/27/21 12/09/22 levocetirizine 5 mg tablet 5 mg PO DAILY PRN Allergy Symptoms 08/27/21 12/09/22 melatonin 5 mg capsule 5 - 10 mg PO BEDTIME 08/27/21 12/09/22 paliperidone 6 mg tablet,extended 6 mg PO BEDTIME 08/27/21 12/09/22 release 24 hr (Invega) tiotropium bromide 18 mcg capsule 1 cap inhalation DAILY 08/27/21 12/09/22 with inhalation device (Spiriva with HandiHaler) acetaminophen 500 mg tablet 500 mg PO Q8H PRN Pain 09/08/21 12/09/22 cholecalciferol (vitamin D3) 125 125 mcg PO DAILY 09/08/21 12/09/22 mcg (5,000 unit) tablet (Vitamin D3) nicotine (polacrilex) 2 mg buccal 12 mg buccal DAILY PRN Nicotine 09/08/21 12/09/22 lozenge Cravings vitamins no.144-folic 1 tab PO DAILY 09/08/21 12/09/22 acid 400 mcg chewable tablet () alprazolam 1 mg tablet 2 mg PO TID PRN Anxiety 10/27/23 10/27/23 methocarbamol 750 mg tablet 750 mg PO TID PRN 12/09/22 12/09/22 paliperidone palmitate 234 mg/1.5 234 mg IM 12/09/22 12/09/22 mL intramuscular syringe (Invega Sustenna) sumatriptan succinate 25 mg tablet 25 mg PO 12/09/22 12/09/22 venlafaxine 150 mg tablet,extended See Rx Instructions PO DAILY 12/09/22 12/09/22 release 24 hr buspirone 10 mg tablet 10 mg PO TID 02/05/25 02/05/25 ferrous sulfate 325 mg PO DAILY 02/05/25 02/05/25 lactulose 10 gram oral packet 10 g PO DAILY 02/05/25 02/05/25 Previous Rx's ?Medication ?Instructions ?Recorded phenylephrine 0.25 %-cocoa butter 1 supp RI BID PRN itching #12 ea 12/09/22 88.44 % rectal suppository (Preparation H(phenyleph,cocoa buttr)) phenylephrine 0.25 %-pramoxine 1 1 applic RI BID #26 grams 12/09/22 %-glycerin-wh.petrolatum rectal cream (Preparation H Maximum Strength) Allergies Allergy/AdvReac Type Severity Reaction Status Date / Time cephalexin (From Keflex) Allergy ADR-Halluci Verified 12/09/22 12:26 nating risperidone Allergy ADR-Agitate Verified 12/09/22 12:26 d Review of Systems Narrative: Constitutional symptoms: Negative except as documented in HPI. Skin symptoms: Negative except as documented in HPI. Eye symptoms: Negative except as documented in HPI. ENMT symptoms: Negative except as documented in HPI. Respiratory symptoms: Negative except as documented in HPI. Cardiovascular symptoms: Negative except as documented in HPI. Gastrointestinal symptoms: Negative except as documented in HPI. Genitourinary symptoms: Negative except as documented in HPI. Musculoskeletal symptoms: Negative except as documented in HPI. Neurologic symptoms: Negative except as documented in HPI. Psychiatric symptoms: Negative except as documented in HPI. Endocrine symptoms: Negative except as documented in HPI. PFSH ED PFSH: Medical History (Updated 02/05/25 @ 15:00 by Cindy Lopes MD) Asthma Social History (Updated 09/14/21 @ 07:59 by Stanford Edwards DO) Smoking and tobacco/nicotine status: current every day tobacco/nicotine user Alcohol intake: never Physical Exam Narrative: EXAM NARRATIVE: General: Alert. no acute distress Skin: Warm, dry Head: Normocephalic, atraumatic. Neck: Supple, trachea midline. Eye: Extraocular movements are intact. Ears, nose, mouth and throat: Oral mucosa moist. Cardiovascular: Regular rate and rhythm, Normal peripheral perfusion. Respiratory: Lungs are clear to auscultation, respirations are non-labored, breath sounds are equal, Symmetrical chest wall expansion. Gastrointestinal: Soft, Nontender, Non distended Musculoskeletal: Normal ROM, no deformity. Neurological: Alert and oriented. No focal neurological deficit observed. Psychiatric: Cooperative, depressed, expresses suicidal ideation. Course Vital Signs: Vital signs: Vital Signs Temperature 97.9 F 02/05/25 15:35 Pulse Rate 60 02/05/25 15:40 Respiratory Rate 16 02/05/25 15:35 Blood Pressure 103/56 02/05/25 15:40 Pulse Oximetry 95 02/05/25 15:40 Oxygen Delivery Me thod Room Air 02/05/25 15:35 MDM - Psych Medical Decision Making Medical decision making: Patient's reason for coming to the emergency room: Suicidal ideation Social determinants: Reported methamphetamine abuse. Currently in a rehab unit I reviewed the patient's medical record. Patient has not been admitted here for psychiatric reasons in the past I reviewed the patient's current home meds Patient does have listed venlafaxine in his med list Alternate historians: None Differential diagnosis: Patient with reported depression and suicidal ideation. concerns for infection, alcohol intoxication, cardiac issues or other medical problems prior to psychiatric admission. Workup: labwork, ekg ordered to evaluate the pathologies and to clear the patient medically prior to psychiatric admission Lab Review: Laboratory results were reviewed and interpreted by myself the emergency room physician. - Medically cleared. - EKG shows no ischemic changes. - Blood alcohol level is negative, -Tylenol and salicylate levels are negative. - Urinalysis and drug screen are pending at admission - No anemia. - BUN and creatinine are within normal limits. Assessment of risk: - Level of risk high risk patient with suicidal thoughts. Young male - Was hospitalization considered? Patient is being admitted Consultation: I spoke Dr. Boss who is on-call for the psychiatry service who agrees to admission Assessment and plan: Suicidal ideation -Admission to neuropsychiatric unit for continued evaluation and treatment. - All lab work was reviewed and interpreted personally by myself, the ER physician - Evaluation and treatment of this problem were appropriate in the emergency setting Lab Data 02/05/25 14:03 02/05/25 14:03 Laboratory Results WBC 6.82 10^3/uL (3.29-11.43) 02/05/25 14:03 RBC 3.94 10^6/uL (3.85-5.65) 02/05/25 14:03 Hgb 12.20 g/dL (11.27-16.99) 02/05/25 14:03 Hct 37.3 % (37-53) 02/05/25 14:03 MCV 94.7 fl (82-101) 02/05/25 14:03 MCH 31.0 pg (27-33) 02/05/25 14:03 MCHC 32.7 g/dL (30-55) 02/05/25 14:03 RDW 12.8 % (12.1-15.1) 02/05/25 14:03 Plt Count 261 10^3/cmm (157-399) 02/05/25 14:03 MPV 9.7 fL (7.4-10.4) 02/05/25 14:03 Neut % (Auto) 60.3 % 02/05/25 14:03 Lymph % (Auto) 29.3 % 02/05/25 14:03 [place] % (Auto) 6.3 % 02/05/25 14:03 Eos % (Auto) 3.2 % 02/05/25 14:03 Baso % (Auto) 0.6 % 02/05/25 14:03 Neut # (Auto) 4.11 10^3/uL (1.8-7.7) 02/05/25 14:03 Lymph # (Auto) 2.0 10^3/uL (0.8-4.8) 02/05/25 14:03 [place] # (Auto) 0.4 10^3/uL (0.2-0.9) 02/05/25 14:03 Eos # (Auto) 0.2 10^3/uL (0.0-0.8) 02/05/25 14:03 Baso # (Auto) 0.0 10^3/uL (0.0-0.1) 02/05/25 14:03 Nucleated RBC % (auto) 0 % 02/05/25 14:03 Nucleated RBCs # 0.0 /100WBC 02/05/25 14:03 Sodium 139 mmol/L (136-145) 02/05/25 14:03 Potassium 4.6 mmol/L (3.5-5.1) 02/05/25 14:03 Chloride 103 mmol/L (98-107) 02/05/25 14:03 Carbon Dioxide 26 mmol/L (22-29) 02/05/25 14:03 Anion Gap 14.6 (5-19) 02/05/25 14:03 BUN 24 mg/dL (6-20) H 02/05/25 14:03 Creatinine 0.7 mg/dL (0.7-1.2) 02/05/25 14:03 GFR Calculation 129.9 mL/min (90-130) 02/05/25 14:03 Glucose 91 mg/dL (65-115) 02/05/25 14:03 Calculated Osmolality 292 mOsm/kg (285-295) 02/05/25 14:03 Calcium 9.1 mg/dL (8.5-10.5) 02/05/25 14:03 Total Bilirubin 0.2 mg/dL (0.15-1.2) 02/05/25 14:03 AST 13 U/L (0-40) 02/05/25 14:03 ALT 12 U/L (0-41) 02/05/25 14:03 Alkaline Phosphatase 85 U/L (40-130) 02/05/25 14:03 Total Protein 6.7 g/dL (6.6-8.7) 02/05/25 14:03 Albumin 4.3 g/dL (3.5-5.2) 02/05/25 14:03 Globulin 2.4 g/dL (1.3-4.6) 02/05/25 14:03 TSH 1.91 uIU/mL (0.27-4.20) 02/05/25 14:03 Salicylates < 0.3 mg/dL (3-10) L 02/05/25 14:03 Acetaminophen < 5.0 ug/mL (10-30) L 02/05/25 14:03 Ethyl Alcohol < 10 mg/dL (0-10) 02/05/25 14:03 No radiology studies performed this visit Discharge Plan Discharge Patient Disposition: Admitted As Inpatient Admit Provider: Rommel Boss Clinical Impression: Suicidal ideation, Depression Condition: Stable Coding Level of Care Code ED Complaint Clerk for Agustín Gordillo
--- OUTSIDE RECORDS SUMMARY | 2025-02-05 13:56 | XMS_ITS | Patient Health Record ---
Author Organization [facility] Address [address], [place] [id number] Phone [phone] Care Team Providers Care Drier Tender Naphthalene Name Role Phone Yaron SANTIAGO, DR. Alexis Unavailable [phone] Lucy Roach APRN Unavailable Allergies Allergen (clinical drug ingredient) Drug/Non Drug Allergy documented on EMR Reaction Allergy Type Onset Date Status cephalexin Cephalexin Unknown Drug Allergy Activ e Reason For Referral Referral Date 10/02/2024 Referral Status Pending Reason Home sleep study Diagnosis 1 Hypersomnia (G47.10) [facility]erral Organization [facility] Referring Provider First Name Lucy Referring Provider Last Name Marley Referred Provider [facility] [employer] Referred Provider Specialty Other suppli er Clinical Notes faxed, Rohini Baez ma 01/17/2025 09:49:21 AM CARD DECORATOR > Referral Priority Routine Addressed Referral details can be found under 'Consultation Request Notes' section Medications Medication SIG (Take, Route, Frequency, Duration) Notes Start Date End Date Diagnosis (ICD Code) Status Gabapentin 800 MG Tablet 1 tablet Orally 3 times a day as needed for pain Lumbar disc disease (ICD_10 - M51.9) Active Celecoxib 100 MG Capsule 1 capsule Orally twice a day As needed Primary generalized (osteo)arthritis (ICD_10 - M15.0) Active Fluticasone Propionate 50 MCG/ACT Suspension 1 spray in each nostril Nasally Once a day; Duration: 60 days As needed Active Mupirocin 2 % Ointment Apply to affected areas External 3 times a day; Duration: 30 days as directed Active Levocetirizine Dihydrochloride 5 MG Tablet Take one tablet Orally Once a day as needed for allergy symptoms Seasonal allergic rhinitis (ICD_10 - J30.2) Active Ondansetron HCl 8 MG Tablet Take one tablet Orally 3 times a day; Duration: 15 days as needed for nausea and vomiting Active Famotidine 40 MG Tablet 1 tablet Orally at bedtime as directed GERD (gastroesophagea l reflux disease) (ICD_10 - K21.9) Active Spiriva HandiHaler 18 MCG Capsule 1 capsule by inhaling the contents of the capsule using the HandiHaler device Inhalation Once a day; Duration: 30 days as directed COPD (chronic obstructive pulmonary disease) (ICD_10 - J44.9) Active Baclofen 10 MG Tablet 1 tablet as needed Orally 3 times a day; Duration: 15 days Not-Taking Melatonin 5 MG Tablet take 2 tablets Orally at bedtime; Duration: 90 days Active Omeprazole 40 MG Capsule Delayed Release 1 capsule Orally Once a day GERD (gastroesophagea l reflux disease) (ICD_10 - K21.9) Active OLANZapine 10 MG Tablet 1 tablet Orally in the evening or at bedtime; Duration: 30 days Not-Taking Promethazine HCl 25 MG Tablet Oral; Duration: 4 Days Not-Taking Cyclobenzaprine HCl 5 MG Tablet Oral; Duration: 30 Days Not-Taking Kristalose 10 GM Packet Dissolve 1 packet in water and drink Orally Once a day; Duration: 30 days Active Ventolin HFA 108 (90 Base) MCG/ACT Aerosol Solution Inhale 2 puffs by mouth every 4-6 hours; Duration: 17 days As needed Active Linzess 145 MCG Capsule 1 capsule at least 30 minutes before the first meal of the day on an empty stomach Orally daily; Duration: 30 days Constipation by delayed colonic transit (ICD_10 - K59.01) Active Atomoxetine HCl 60 MG Capsule 1 capsule in the morning Orally daily; Duration: 30 days Active Zolpidem Tartrate 5 MG Tablet 1 tablet at bedtime as needed Orally daily; Duration: 30 days for insomnia Active cloNIDine HCl 0.1 MG Tablet 1 tablet Orally Once a day As needed Active M-Jaime Plus 27-1 MG Tablet 1 tablet Orally Once a day Active Suboxone 8-2 MG Film Dissolve 1/2 to 1 film under the tongue Sublingual 2 - 3 times daily; Duration: 30 days As needed Active Vitamin D (Ergocalciferol) 40153 UNIT Capsule 1 capsule Orally once weekly Vitamin D deficiency (ICD_10 - E55.9) Active Venlafaxine HCl 100 MG Tablet 1 tablet with food Orally Once a day; Duration: 30 days Active busPIRone HCl 15 MG Tablet 1 tablet Orally 3 times a day; Duration: 30 days as needed for anxiety Active hydrOXYzine HCl 50 MG Tablet 1 tablet as needed Orally twice a day; Duration: 30 days for anxiety Active Social History Sex Observation Social History [...] Problem Status W/U Status Risk Notes Problem Primary generalised osteoarthritis (458879452) Primary generalized (osteo)arthriti s (M15.0) Added On:10/02 Active confirmed Problem Constipation by delayed colonic transit (91052824) Constipation by delayed colonic transit (K59.01) Added On:10/02 Active confirmed Problem Disorder of lumbar disc (973086732) Lumbar disc disease (M51.9) Added On:10/02 Active confirmed Problem Hypersomnia (11485978) Hypersomnia (G47.10) Added On:10/02 Active confirmed Problem Vitamin D deficiency (46403918) Vitamin D deficiency (E55.9) Added On:10/02 Active confirmed Problem Gastroesophageal reflux disease (883544604) GERD (gastroesophage al reflux disease) (K21.9) Added On:10/02 Active confirmed Problem COPD - Chronic obstructive pulmonary disease (87152433) COPD (chronic obstructive pulmonary disease) (J44.9) Added On:10/02 Active confirmed Problem Seasonal allergic rhinitis (380034574) Seasonal allergic rhinitis (J30.2) Added On:10/02 Active confirmed Vital Signs Vital Sign Value Notes Appt Date Heart Rate 85 /min 10/02/2024 Respiratory Rate 18 /min 10/02/2024 Height-cm 172.72 cm 10/02/2024 Oximetry 94 % 10/02/2024 Blood pressure diastolic 60 mm Hg Weight-kg 68.95 kg 10/02/2024 Height 68 in 10/02/2024 Blood pressure systolic 90 mm Hg 09/14 Weight 152 lbs 10/02/2024 BMI 23.11 kg/m2 10/02/2024 Encounters Date Time Type Facility Location Provider Diagnosis 10/03/19 02:45 PM Office Visit, New Pt., Level 3 (76376) [facility] [address] [address] [place] [address] Reuben Marrufo Hypersomnia G47.10 ; Acute non-recurrent pansinusitis J01.40 ; Recurrent acute serous otitis media of both ears H65.06 ; Vitamin D deficiency E55.9 ; GERD (gastroesophage al reflux disease) K21.9 ; Seasonal allergic rhinitis J30.2 ; Lumbar disc disease M51.9 ; Primary generalized (osteo)arthriti s M15.0 ; COPD (chronic obstructive pulmonary disease) J44.9 and Constipation by delayed colonic transit K59.01 10/04/19 10:12 AM Telephone Encounter [facility] [address] [place] [address] Lucy Roach COPD (chronic obstructive pulmonary disease) J44.9 and Constipation by delayed colonic transit K59.01 10/08/19 12:00 PM Telephone Encounter [facility] [address] [address] [place] [address] Lucy Roach Assessments Encounter Date Diagnosis (ICD Code) Assessment Notes Treat ment Notes Section Notes 10/02/2024 Hypersomnia (ICD-10 - G47.10) 10/02/2024 Acute non-recurrent pansinusitis (ICD-10 - J01.40) 10/03/2024 COPD (chronic obstructive pulmonary disease) (ICD-10 - J44.9) 10/02/2024 Recurrent acute sero us otitis media of both ears (ICD-10 - H65.06) 10/03/2024 Constipation by herbie yed colonic transit (ICD-10 - K59.01) 10/02/2024 Vitamin D deficiency (ICD-10 - E55.9) 10/02/2024 GERD (gastroesophage al reflux disease) (ICD-10 - K21.9) 10/02/2024 Seasonal allergic rhinitis (ICD-10 - J30.2) 10/02/2024 Lumbar disc disease (ICD-10 - M51.9) 10/02/2024 Primary generalized (osteo)arthritis (ICD-10 - M15.0) 10/02/2024 COPD (chronic obstructive pulmonary disease) (ICD-10 - J44.9) 10/02/2024 Constipation by herbie preston colonic transit (ICD-10 - K59.01) Plan Of Treatment No Information Insurance Providers Payer Name Payer Address Payer Phone Subscriber Number Group Number Insured Name Patient Relationship to Insured Coverage Start Date Coverage End Date [facility] [facility] [address] [place] [address] [id number] Ritter, Creg Self - patient is the insured Medical (General) History Medical History History ICD Code COPD Scoliosis Sleep Apnea Borderline personality disorder PTSD Depression- Manic and Major Anxiety- Generalized ADHD Surgical History Surgery Date(Month/Year) Hernia appendectomy Colonoscopy exploratory surgery
[2025-02-05 14:08] LABS: Hematocrit 37.3 % (37-53); Hemoglobin 12.20 g/dL (11.27-16.99); Mean Corpuscular HGB Conc 32.7 g/dL (30-55); Mean Corpuscular Hemoglobin 31.0 pg (27-33); Mean Corpuscular Volume 94.7 fl (82-101); Nucleated Red Blood Cells % 0 %; Platelet Count 261 10^3/cmm (157-399); Red Blood Count 3.94 10^6/uL (3.85-5.65); White Blood Count 6.82 10^3/uL (3.29-11.43)
[2025-02-05 14:50] LABS: Alanine Aminotransferase 12 U/L (0-41); Albumin Level 4.3 g/dL (3.5-5.2); Alkaline Phosphatase 85 U/L (40-130); Anion Gap 14.6 (5-19); Aspartate Amino Transferase 13 U/L (0-40); Blood Urea Nitrogen 24 mg/dL (6-20); Calcium 9.1 mg/dL (8.5-10.5); Carbon Dioxide 26 mmol/L (22-29); Chloride 103 mmol/L (98-107); Creatinine Clr Calc Pharmacy 139.0482; Globulin 2.4 g/dL (1.3-4.6); Glucose 91 mg/dL (65-115); Osmolality Calculated 292 mOsm/kg (285-295); Potassium 4.6 mmol/L (3.5-5.1); Sodium 139 mmol/L (136-145); Thyroid Stimulating Hormone 1.91 uIU/mL (0.27-4.20); Total Protein 6.7 g/dL (6.6-8.7)
[2025-02-05 14:51] LABS: Acetaminophen < 5.0 ug/mL (10-30); Alcohol Level < 10 mg/dL (0-10); Salicylate < 0.3 mg/dL (3-10)
--- NOTE | 2025-02-05 15:16 | ECG_ITS ---
[facility] Test Date: 2025-02-05 Pat Name: Olegario Ritter Department: Room: 124 Gender: Male Cisco Administrator: : 1990 Requested By: Cindy Cope Order Number: [id number] Ruddy MD: KIMBERLY CLOUD Measurements Intervals [place] Rate: 52 P: 48 IL: 153 QRS: 64 QRSD: 110 T: 37 QT: 446 QTc: 416 Interpretive Statements SINUS BRADYCARDIA Compared to ECG 09/08/2021 14:48:13 Sinus rhythm no longer present Electronically Signed On 02-05-2025 20:14:26 SHADING PAINTER by KIMBERLY CLOUD [email or web address]
[2025-02-05 15:30] LABS: Glucose Urine UA Negative (Normal); Nitrate Urine Negative (Negative); Specific Gravity, Urine 1.008 (1.005-1.030)
[2025-02-05 15:35] VITALS: BP 113/72; PULSE 64; RESP 16; TEMP 36.6; O2SAT 99
[2025-02-05 15:35] LABS: Add Urine Microscopic? YES
[2025-02-05 15:40] VITALS: BP 103/56; PULSE 60; O2SAT 95
[2025-02-05 15:40] LABS: PCP Screen Urine Negative (Negative)
--- NOTE | 2025-02-05 16:13 | PC.NURSE ---
96 hr rights reviewed with pt @7034 with assistance of ADITI Pulido X1. All education reviewed at this time. No verbalized questions when asked. Copy of rights left @bedside with pt.
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
[2025-02-05 17:01] VITALS: PULSE 72; RESP 16; O2SAT 98
--- NOTE | 2025-02-05 17:57 | PC.NURSE ---
medications reconciled.
--- NOTE | 2025-02-05 18:35 | PC.NURSE ---
Doctor aleisha notified of Gram positive cocci in cluster blood cluture. Dr. moraes spoke with ER Doctor who stted to wait on final results.
[2025-02-05 19:31] VITALS: BP 96/56; PULSE 71; RESP 18; TEMP 36.8; O2SAT 94
[2025-02-05] MEDS: MELATONIN 3 MG TABLET 6 MG PO (21:40)
[2025-02-06 05:33] VITALS: BP 95/60; PULSE 57; RESP 15; TEMP 36.7; O2SAT 94
--- NOTE | 2025-02-06 07:39 | P.NPUHP_ITS ---
Providers/Chief Complaint 2 Admitting Physician: Rommel Boss MD Chief Complaint: SI HPI NPU History of Present Illness Olegario Ritter is a 34 year old male who presented to the emergency department with the following report: Chief Complaint: Psychiatric Symptoms Stated Complaint: SI History of Present Illness: 34-year-old man with a history of methamphetamine abuse, asthma, anxiety and depression who presents to the emergency room with suicidal thoughts. He is currently and [facility] for methamphetamine detox. He says he has been feeling weak and tired. He says he been having suicidal thoughts but does not have a specific plan. He was admitted to the neuropsychiatric unit for definitive treatment of those issues. He is unknown to [facility] psychiatry through inpatient or outpatient services. He presented with a negative UDS reporting that he is over at the [facility] and that he made some statements that led to concerns on their part which prompted his evaluation and admission here. He presented reporting that he presents from the [facility] where he is getting help with his methamphetamine use disorder. He reports that he struggles with anxiety and depression and also has had some perceptual disturbances which are unclear whether they are causative or exacerbating of his overall situation. He reports that he feels his medications are working fine and he was just having a bad day and made a comment that was hard by the wrong people and he reported that they do not play around over the area when it comes to someone suggesting that they may be having suicidal thoughts. He reports he was just in a bad place at the moment and it was overheard by the wrong person. He reports that one of the major concerns and the reason why he was not doing well is they were giving him his Zyprexa during the day and was making him so sleepy and he was struggling to sleep at night and that he thinks is the overwhelming issue. He reports that he was able to sleep really well last night with the medications he was given here and feels tremendously better. We discussed the risks, benefits and alternatives of changing his Zyprexa to bedtime and he understood and agreed to proceed as is documented in this note. He reports that he is to return to the [facility] when he is evaluated and stabilized here. We discussed that we would take it a day at a time as far as the timeframe of returning him to the [facility] likely sometime between tomorrow and Monday. He had reported being on Suboxone and we agreed that we would prescribe that as long as we are able to confirm with [facility] that that is part of his normal medication regimen. Meds NPU Home Medications ?Medication ?Instructions ?Recorded ?Confirmed ?Last Taken ?Type levocetirizine 5 mg tablet 5 mg PO DAILY PRN Allergy S ymptoms 08/27/21 02/05/25 09/08/21 History nicotine (polacrilex) 2 mg buccal 12 mg buccal DAILY P RN Nicotine 09/08/21 02/05/25 09/08/21 History lozenge Cravings buspirone 10 mg tablet 10 mg PO TID 02/05/2502/05/25 12:00 History ferrous sulfate 325 mg PO DAILY 02/05/2502/05/25 07:00 History lactulose 10 gram oral packet 10 g PO DAILY 02/05/25 1 04/08/24 Unknown History linaclotide 145 mcg capsule 145 mcg PO DAILY 02/05/25 02/05/25 02/05/25 07:00 History (Linzess) melatonin 5 mg PO DAILY 02/05/2502/0502/04/25 20:00 History olanzapine 5 mg tablet 5 mg PO DAILY 02/05/2502/0501/28/25 20:00 History oxcarbazepine 150 mg tablet 150 mg PO BID 02/05/2502/05/25 08:00 History pantoprazole 40 mg PO DAILY 02/05/2501/1402/05/25 07:00 History Allergies Allergy/AdvReac Type Severity Reaction Status Date / Time cephalexin (From Keflex) Allergy ADR-Halluci Verified 12/09/22 12:26 nating risperidone Allergy ADR-Agitate Verified 12/09/22 12:26 d PFS NPU 2 PFSH: Medical History (Updated 02/07/25 @ 06:40 by Rommel Boss MD) Asthma Social History (Updated 09/14/21 @ 07:59 by Stanford Edwards DO) Smoking and tobacco/nicotine status: current every day tobacco/nicotine user Alcohol intake: never Mental Status Exam 2 MSE Comments: This is a well-nourished well-developed white male in hospital scrubs with adequate grooming and limited eye contact. No abnormal movements except for mild psychomotor retardation. Cooperative with exam and mild distress. Speech was slightly decreased rate and volume. Mood described as better than yesterday, affect slightly subdued. Thought process organized. Thought content: Patient denied suicidal or homicidal ideation, there were no delusions reported or noted, he denied any auditory visual hallucinations. Attention and concentration were intact and memory appeared reliable but none were formally tested. He is alert and oriented x 3. Insight appears fair, judgment and impulse control impaired. Vitals/I&O/Wt Last Vital Signs Temp 98.1 F 02/06/25 05:33 Pulse 57 L 02/06/25 05:33 Resp 15 02/06/25 05:33 BP 95/60 02/06/25 05:33 Pulse Ox 94 02/06/25 05:33 O2 Del Method Room Air 02/06/25 05:33 Weight last 48 hrs Weight 68.039 kg Data NPU 02/05/25 14:03 02/05/25 14:03 A&P Assessment and plan 1. Methamphetamine use disorder, severe, dependence: 2. Depression: 3. Anxiety: 4. Suicidal ideation: Plan: This is a 34-year-old white male with a history of mental health and addiction issues who presents with active addiction but none reportedly since his admission at the [facility] for methamphetamine use presenting with a negative UDS. 1. Continue current medication. 2. Continue every 15 minute checks for safety. 3. Encourage individual, group and milieu therapy. 4. Obtain collateral information. 5. Encouraged sober living treatment after discharge at the highest level care to which he is willing to commit. 6. Observe against the backdrop of the 96-hour hold. PDMP PDMP Reviewed: Not Reviewed Involuntary Hold Information 2 Hold Status: Legal Status: 96 Hour Hold Date/Time Hold Expires: 0 02/14/25@0001 Attestations NPU 2 Medical Necessity Statement*: Inpatient hospitalization is medically necessary and the clinically appropriate intervention at this time. We will monitor/initiate medications and make changes as indicated. She will be in the hospital for over 2 midnights. Likely length of stay 2 to 5 days. Coding Level of Care Code Acute Code for g Fwd Diagnoses Methamphetamine use disorder, severe, dependence F15.20 Depression F32.A Anxiety F41.9 Suicidal ideation R45.851
[2025-02-06] MEDS: lactulose oral liq 20 gm/30 mL UDC 10 GM PO (08:47)
[2025-02-06] MEDS: ferrous sulfate EC 325 mg Tablet PO (08:49)
[2025-02-06 08:56] VITALS: PULSE 71; RESP 15; O2SAT 98
[2025-02-06 14:00] VITALS: BP 91/51; PULSE 57; RESP 15; TEMP 36.8; O2SAT 95
[2025-02-06 20:18] VITALS: BP 101/68; PULSE 80; RESP 17; TEMP 37.1; O2SAT 95
[2025-02-06] MEDS: MELATONIN 3 MG TABLET 6 MG PO (20:41)
[2025-02-07 06:00] VITALS: BP 102/62; PULSE 83; RESP 17; O2SAT 95
--- NOTE | 2025-02-07 07:52 | PC.NURSE ---
Angry et rude toward staff when requesting coffee et any engaging.
[2025-02-07] MEDS: ferrous sulfate EC 325 mg Tablet PO (09:40)
--- NOTE | 2025-02-07 11:53 | P.NPUPN_ITS ---
Subjective NPU 2 Subjective: Patient presented today reporting that he is doing all right. He worked with the social work team to connect with [facility] to get understanding of their position on things. They wanted to see some days of stability prior to him returning. We discussed that with the weekend and everything else considered with a plan for discharge on Monday is the most likely outcome. He reported that he is able to live with that and we agreed that we would see based on his functioning and [facility] availability whether a discharge this weekend was possible but that the likely outcome would be Monday. He denied any side effects of his medication. Mental Status Exam 2 MSE Comments: This is a well-nourished well-developed white male in hospital scrubs with adequate grooming and limited eye contact. No abnormal movements except for mild psychomotor retardation. Cooperative with exam and mild distress. Speech was slightly decreased rate and volume. Mood described as better than yesterday, affect slightly subdued. Thought process organized. Thought content: Patient denied suicidal or homicidal ideation, there were no delusions reported or noted, he denied any auditory visual hallucinations. Attention and concentration were intact and memory appeared reliable but none were formally tested. He is alert and oriented x 3. Insight appears fair, judgment and impulse control impaired. Vitals/I&O/Wt Last Vital Signs Temp 98.7 F 02/06/25 20:18 Pulse 83 02/07/25 06:00 Resp 17 02/07/25 06:00 BP 102/62 02/07/25 06:00 Pulse Ox 95 02/07/25 06:00 O2 Del Method Room Air 02/07/25 06:00 Weight last 48 hrs Weight 68.039 kg Data NPU 02/05/25 14:03 02/05/25 14:03 A&P Assessment and plan 1. Methamphetamine use disorder, severe, dependence: 2. Depression: 3. Anxiety: 4. Suicidal ideation: Plan: This is a 34-year-old white male with a history of mental health and addiction issues who presents with active addiction but none reportedly since his admission at [facility] for methamphetamine use presenting with a negative UDS. 1. Continue current medication. 2. Continue every 15 minute checks for safety. 3. Encourage individual, group and milieu therapy. 4. Obtain collateral information. 5. Encouraged sober living treatment after discharge at the highest level care to which he is willing to commit. Likely return to [facility] on Monday. 6. Observe against the backdrop of the 96-hour hold. PDMP PDMP Reviewed: Not Reviewed Involuntary Hold Information 2 Hold Status: Legal Status: 96 Hour Hold Date/Time Hold Expires: 0 02/14/25@0001 Attestations NPU 2 Medical Necessity Statement*: Inpatient hospitalization is medically necessary and the clinically appropriate intervention at this time. We will monitor/initiate medications and make changes as indicated. Likely length of stay 3 days. Coding Level of Care Code Acute Code for [facility] Fwd Diagnoses Methamphetamine use disorder, severe, dependence F15.20 Depression F32.A Anxiety F41.9 Suicidal ideation R45.851
[2025-02-07 14:00] VITALS: BP 100/51; PULSE 73; RESP 18; TEMP 37; O2SAT 100
[2025-02-07 17:36] VITALS: PULSE 73; RESP 18; O2SAT 100
[2025-02-07 20:21] VITALS: BP 109/70; PULSE 73; RESP 18; TEMP 37.1; O2SAT 95
[2025-02-07] MEDS: MELATONIN 3 MG TABLET 6 MG PO (23:10)
--- NOTE | 2025-02-07 23:10 | PC.NURSE ---
Melatonin was given at 2030 but did not scan properly. Pt. was re-scanned when noticed
[2025-02-08 04:56] VITALS: BP 98/60; PULSE 88; RESP 17; TEMP 36.6; O2SAT 94
[2025-02-08] MEDS: ferrous sulfate EC 325 mg Tablet PO (08:09)
[2025-02-08] MEDS: lactulose oral liq 20 gm/30 mL UDC 10 GM PO (08:10)
--- NOTE | 2025-02-08 08:13 | P.NPUPN_ITS ---
Subjective NPU 2 Subjective: Patient presented today reporting that he was doing fine. He did get a visitation from his significant other which was helpful. He discussed having some tough times with his recent withdrawal and sobriety from methamphetamine. He reports feeling better as he has had his Zyprexa switched to bedtime and been sleeping better he reports. He denied any side effects to the medication. Mental Status Exam 2 MSE Comments: This is a well-nourished well-developed white male in hospital scrubs with adequate grooming and limited eye contact. No abnormal movements except for mild psychomotor retardation. Cooperative with exam and mild distress. Speech was slightly decreased rate and volume. Mood described as better than yesterday, affect slightly subdued. Thought process organized. Thought content: Patient denied suicidal or homicidal ideation, there were no delusions reported or noted, he denied any auditory visual hallucinations. Attention and concentration were intact and memory appeared reliable but none were formally tested. He is alert and oriented x 3. Insight appears fair, judgment and impulse control impaired. Vitals/I&O/Wt Last Vital Signs Temp 97.9 F 02/08/25 04:56 Pulse 88 02/08/25 04:56 Resp 17 02/08/25 04:56 BP 98/60 02/08/25 04:56 Pulse Ox 94 02/08/25 04:56 O2 Del Method Room Air 02/08/25 04:56 Data NPU 02/05/25 14:03 02/05/25 14:03 A&P Assessment and plan 1. Methamphetamine use disorder, severe, dependence: 2. Depression: 3. Anxiety: 4. Suicidal ideation: Plan: This is a 34-year-old white male with a history of mental health and addiction issues who presents with active addiction but none reportedly since his admission at [facility] for methamphetamine use presenting with a negative UDS. 1. Continue current medication. 2. Continue every 15 minute checks for safety. 3. Encourage individual, group and milieu therapy. 4. Obtain collateral information. 5. Encouraged sober living treatment after discharge at the highest level care to which he is willing to commit. Likely return to [facility] on Monday. 6. Observe against the backdrop of the 96-hour hold. PDMP PDMP Reviewed: Not Reviewed Involuntary Hold Information 2 Hold Status: Legal Status: 96 Hour Hold Date/Time Hold Expires: 0 1/02/26@0001 Attestations NPU 2 Medical Necessity Statement*: Inpatient hospitalization is medically necessary and the clinically appropriate intervention at this time. We will monitor/initiate medications and make changes as indicated. Likely length of stay 2 days. Coding Level of Care Code Acute Code for Chg Fwd Diagnoses Methamphetamine use disorder, severe, dependence F15.20 Depression F32.A Anxiety F41.9 Suicidal ideation R45.851
[2025-02-08 13:59] VITALS: BP 100/69; PULSE 84; RESP 17; TEMP 36.5; O2SAT 95
[2025-02-08] MEDS: MELATONIN 3 MG TABLET 6 MG PO (20:02)
[2025-02-08 20:34] VITALS: BP 114/73; PULSE 80; RESP 17; TEMP 36.7; O2SAT 92
[2025-02-09 06:00] VITALS: BP 110/66; PULSE 85; RESP 18; TEMP 36.7; O2SAT 100; BMI 26.9
--- NOTE | 2025-02-09 07:11 | P.NPUPN_ITS ---
Subjective NPU 2 Subjective: Patient presented today reporting that things are going better. He reports a desire to return to [facility] tomorrow. We discussed working with the social work team to make sure everything is in place for his return and that his current trajectory suggested that would be a reasonable plan tomorrow. He denied any side effects to his medications. Mental Status Exam 2 MSE Comments: This is a well-nourished well-developed white male in hospital scrubs with adequate grooming and limited eye contact. No abnormal movements except for mild psychomotor retardation. Cooperative with exam and mild distress. Speech was slightly decreased rate and volume. Mood described as better, affect slightly subdued. Thought process organized. Thought content: Patient denied suicidal or homicidal ideation, there were no delusions reported or noted, he denied any auditory visual hallucinations. Attention and concentration were intact and memory appeared reliable but none were formally tested. He is alert and oriented x 3. Insight appears fair, judgment and impulse control limited. Vitals/I&O/Wt Last Vital Signs Temp 98.1 F 02/09/25 06:00 Pulse 85 02/09/25 06:00 Resp 18 02/09/25 06:00 BP 110/66 02/09/25 06:00 Pulse Ox 100 02/09/25 06:00 O2 Del Method Room Air 02/09/25 06:00 Weight last 48 hrs Weight 75.523 kg Data NPU 02/05/25 14:03 02/05/25 14:03 A&P Assessment and plan 1. Methamphetamine use disorder, severe, dependence: 2. Depression: 3. Anxiety: 4. Suicidal ideation: Plan: This is a 34-year-old white male with a history of mental health and addiction issues who presents with active addiction but none reportedly since his admission at [facility] for methamphetamine use presenting with a negative UDS. 1. Continue current medication. 2. Continue every 15 minute checks for safety. 3. Encourage individual, group and milieu therapy. 4. Obtain collateral information. 5. Encouraged sober living treatment after discharge at the highest level care to which he is willing to commit. Likely return to [facility] on Monday. 6. Observe against the backdrop of the 96-hour hold. PDMP PDMP Reviewed: Not Reviewed Involuntary Hold Information 2 Hold Status: Legal Status: 96 Hour Hold Date/Time Hold Expires: 0 02/14/25@0001 Attestations NPU 2 Medical Necessity Statement*: Inpatient hospitalization is medically necessary and the clinically appropriate intervention at this time. We will monitor/initiate medications and make changes as indicated. Likely length of stay 1 day. Coding Level of Care Code Acute Code for Chg Fwd Diagnoses Methamphetamine use disorder, severe, dependence F15.20 Depression F32.A Anxiety F41.9 Suicidal ideation R45.851
[2025-02-09] MEDS: ferrous sulfate EC 325 mg Tablet PO (09:25)
[2025-02-09 14:00] VITALS: BP 97/66; PULSE 76; RESP 17; TEMP 36.9; O2SAT 95
[2025-02-09] MEDS: MELATONIN 3 MG TABLET 6 MG PO (20:20)
[2025-02-09 20:51] VITALS: BP 113/80; PULSE 83; RESP 18; TEMP 36.8; O2SAT 92
[2025-02-10 06:00] VITALS: BP 105/60; PULSE 67; RESP 20; TEMP 36.6; O2SAT 97
[2025-02-10] MEDS: ferrous sulfate EC 325 mg Tablet PO (08:31)
--- NOTE | 2025-02-10 13:19 | P.NPUDS_ITS ---
Diagnoses at Discharge Discharge Diagnosis 1. Methamphetamine use disorder, severe, dependence: 2. Depression: 3. Anxiety: 4. Suicidal ideation: Reason for Visit Reason for Visit: SI Involuntary Hold Information Hold Status: Legal Status: 96 Hour Hold Date/Time Hold Expires: 02/14/25@0001 Discharge Data Studies Completed and Pending: Laboratory Results WBC 6.82 10^3/uL (3.2 9-11.43) 02/05/25 14:03 RBC 3.94 10^6/uL (3.8 5-5.65) 02/05/25 14:03 Hgb 12.20 g/dL (11.27 -16.99) 02/05/25 14:03 Hct 37.3 % (37-53) 02/05/25 14:03 MCV 94.7 fl (82-101) 02/05/25 14:03 MCH 31.0 pg (27-33) 02/05/25 14:03 MCHC 32.7 g/dL (30-55) 02/05/25 14:03 RDW 12.8 % (12.1-15.1 ) 02/05/25 14:03 Plt Count 261 10^3/cmm (157 -399) 02/05/25 14:03 MPV 9.7 fL (7.4-10.4) 02/05/25 14:03 Neut % (Auto) 60.3 % 02/05/25 14:03 Lymph % (Auto) 29.3 % 02/05/25 14:03 Benzie % (Auto) 6.3 % 02/05/25 14:03 Eos % (Auto) 3.2 % 02/05/25 14:03 Baso % (Auto) 0.6 % 02/05/25 14:03 Neut # (Auto) 4.11 10^3/uL (1.8 -7.7) 02/05/25 14:03 Lymph # (Auto) 2.0 10^3/uL (0.8- 4.8) 02/05/25 14:03 Benzie # (Auto) 0.4 10^3/uL (0.2- 0.9) 02/05/25 14:03 Eos # (Auto) 0.2 10^3/uL (0.0- 0.8) 02/05/25 14:03 Baso # (Auto) 0.0 10^3/uL (0.0- 0.1) 02/05/25 14:03 Nucleated RBC % (a uto) 0 % 02/05/25 14:03 Nucleated RBCs # 0.0 /100WBC 02/05/25 14:03 Sodium 139 mmol/L (136-1 45) 02/05/25 14:03 Potassium 4.6 mmol/L (3.5-5 .1) 02/05/25 14:03 Chloride 103 mmol/L (98-10 7) 02/05/25 14:03 Carbon Dioxide 26 mmol/L (22-29) 02/05/25 14:03 Anion Gap 14.6 (5-19) 02/05/25 14:03 BUN 24 mg/dL (6-20) H 02/05/25 14:03 Creatinine 0.7 mg/dL (0.7-1. 2) 02/05/25 14:03 GFR Calculation 129.9 mL/min (90- 130) 02/05/25 14:03 Glucose 91 mg/dL (65-115) 02/05/25 14:03 Calculated Osmolal ity 292 mOsm/kg (285- 295) 02/05/25 14:03 Calcium 9.1 mg/dL (8.5-10 .5) 02/05/25 14:03 Total Bilirubin 0.2 mg/dL (0.15-1 .2) 02/05/25 14:03 AST 13 U/L (0-40) 02/05/25 14:03 ALT 12 U/L (0-41) 02/05/25 14:03 Alkaline Phosphata se 85 U/L (40-130) 02/05/25 14:03 Total Protein 6.7 g/dL (6.6-8.7 ) 02/05/25 14:03 Albumin 4.3 g/dL (3.5-5.2 ) 02/05/25 14:03 Globulin 2.4 g/dL (1.3-4.6 ) 02/05/25 14:03 TSH 1.91 uIU/mL (0.27 -4.20) 02/05/25 14:03 Urine Color Yellow (Yellow) 02/05/25 15:21 Urine Appearance Clear (CLEAR) 02/05/25 15:21 Urine pH 5.5 (5-7) 02/05/25 15:21 Ur Specific Gravit y 1.008 (1.005-1.0 30) 02/05/25 15:21 Urine Protein Negative (Negati ve) 02/05/25 15:21 Urine Glucose (UA) Negative (Normal ) 02/05/25 15:21 Urine Ketones Negative (Negati ve) 02/05/25 15:21 Urine Blood Negative (Negati ve) 02/05/25 15:21 Urine Nitrate Negative (Negati ve) 02/05/25 15:21 Urine Bilirubin Negative (Negati ve) 02/05/25 15:21 Urine Urobilinogen 0.2 mg/dL (Negati ve) 02/05/25 15:21 Ur Leukocyte Mei ase Negative (Negati ve) 02/05/25 15:21 Urine RBC 0-2 /hpf (0-2) 02/05/25 15:21 Urine WBC 0-5 /hpf (0-5) 02/05/25 15:21 Ur Squamous Epith Cells 0-5 /hpf (0-5) 02/05/25 15:21 Amorphous Sediment Not Reportable 02/05/25 15:21 Urine Bacteria None seen /hpf (N ONE) 02/05/25 15:21 Hyaline Casts 0-4 /lpf H 02/05/25 15:21 Salicylates < 0.3 mg/dL (3-10 ) L 02/05/25 14:03 Urine Opiates Scre en Negative ng/mL (N egative) 02/05/25 15:21 Acetaminophen < 5.0 ug/mL (10-3 0) L 02/05/25 14:03 Ur Barbiturates Sc reen Negative ng/mL (N egative) 02/05/25 15:21 Ur Phencyclidine S crn Negative ng/mL (N egative) 02/05/25 15:21 Ur Amphetamines Sc reen Negative ng/mL (N egative) 02/05/25 15:21 U Benzodiazepines Scrn Negative ng/mL (N egative) 02/05/25 15:21 Urine Cocaine Scre en Negative ng/mL (N egative) 02/05/25 15:21 U Marijuana (THC) Screen Negative ng/mL (N egative) 02/05/25 15:21 Ethyl Alcohol < 10 mg/dL (0-10) 02/05/25 14:03 Vitals: Last Vital Signs Temp 97.9 F 02/10/25 06:00 Pulse 67 02/10/25 06:00 Resp 20 H 02/10/25 06:00 BP 105/60 02/10/25 06:00 Pulse Ox 97 02/10/25 06:00 O2 Del Method Room Air 02/10/25 06:00 Discharge Plan Discharge Patient Disposition: Home Condition: Stable Prescriptions: New prazosin 2 mg capsule 2 mg PO BEDTIME 30 Days Qty: 30 1RF cetirizine 10 mg Tablet 10 mg PO DAILY PRN (Reason: Allergies) 30 Days Qty: 30 1RF melatonin 3 mg Tablet 6 mg PO BEDTIME 30 Days Qty: 60 1RF Continued levocetirizine 5 mg tablet 5 mg PO DAILY PRN (Reason: Allergy Symptoms) nicotine (polacrilex) 2 mg Lozenge 12 mg BUCCAL DAILY PRN (Reason: Nicotine Cravings) buspirone 10 mg Tablet 10 mg PO TID ferrous sulfate 325 mg PO DAILY lactulose 10 gram Packet 10 g PO DAILY Linzess 145 mcg Capsule 145 mcg PO DAILY olanzapine 5 mg Tablet 5 mg PO DAILY oxcarbazepine 150 mg Tablet 150 mg PO BID pantoprazole 40 mg PO DAILY Discontinued melatonin 5 mg PO DAILY Discharge Order = DC NOW: Discharge Order (Routine); Ordered 02/10/25 Ordered By: Rommel Boss Referrals: [facility] [Other] - 02/19/25 3:00 pm Referral Note: By [facility] Discharge Diet: Regular Discharge Activity: Resume usual activity Patient Instructions: Opioid Safety, Patient Portal & Kristin Instructions Coding Level of Care Code Acute Code for Chg Fwd Diagnoses Methamphetamine use disorder, severe, dependence F15.20 Depression F32.A Anxiety F41.9 Suicidal ideation R45.851
[2025-02-10 13:24] VITALS: BP 105/60; PULSE 67; RESP 20; TEMP 36.6; O2SAT 97
[2025-02-10 13:35] VITALS: BP 119/79; PULSE 74; TEMP 36.9; O2SAT 95
== END 2025-02-10 14:00 | disposition home or self-care (01) | DRG 751 ==
LOC: ER 15:00 → NP 15:18
PROVIDERS: Admitting Provider Psychiatry & Neurology Psychiatry; Emergency Provider Emergency Medicine; Visit Provider Psychiatry & Neurology Psychiatry
DX: F32.A Depression, unspecified (principal); R45.851 Suicidal ideations; F15.20 Other stimulant dependence, uncomplicated; F41.9 Anxiety disorder, unspecified; F17.200 Nicotine dependence, unspecified, uncomplicated; J45.909 Unspecified asthma, uncomplicated
CPT/HCPCS: 36415; 80053; 80306; 80307; 81001; 84443; 85025; 93005; 94640; 97150; 97165; 99285; J7613; J9999